=== PATIENT | female | born 1950 | race Caucasian/White ===

== ENCOUNTER 2017-11-24 01:50 | Inpatient (IN) | payer BC, MEDICARE ==
[2017-11-24] MEDS ORDERED: Magnesium Sulfate 2 GM/NS 0.9% 50 ML BAG ONE (02:01)
[2017-11-24 02:26] LABS: #Lymphocytes 0.4 thou/uL (1.20-3.40); #Monocytes 0.3 thou/uL (0.11-0.59); #Neutrophils 8.9 thou/uL (1.40-6.50); %Lymphocytes 4.4 % (21.0-51.0); %Monocytes 3.5 % (0.0-10.0); %Neutrophils 92.1 % (42.0-75.0); Hemoglobin 13.7 g/dL (12.0-16.0); Mean Corpuscular HGB CONC 32.4 g/dL (32.0-36.0); Mean Corpuscular Hemoglobin 29.7 pg (27.0-31.0); Mean Corpuscular Volume 91.6 fl (81.0-99.0); Mean Platelet Volume 6.2 fL (7.4-10.4); Platelet Count 221 thou/uL (130-400); RBC Distribution Width 11.6 % (11.5-14.5); White Blood Cell (WBC) Count 9.7 thou/uL (4.8-10.8)
[2017-11-24 02:45] LABS: ALT (SGPT) 19 U/L (8-55); AST (SGOT) 24 U/L (5-34); Albumin 4.1 g/dL (3.4-4.8); Alkaline Phosphatase 61 U/L (40-150); Anion Gap 14 mmol/L (10-20); BUN (Urea Nitrogen) 12 mg/dL (9.8-20.1); Bilirubin, Total 0.3 mg/dL (0.2-1.2); Calc. Creatinine Clearance 0 mL/min (70-130); Calcium 8.8 mg/dL (7.8-10.44); Carbon Dioxide 24 mmol/L (23-31); Chloride 101 mmol/L (98-107); Estimated GFR-MDRD Greater than 90; Globulin 2.3 g/dL (2.4-3.5); Glucose 134 mg/dL (80-115); Magnesium 1.7 mg/dL (1.6-2.6); Potassium 3.9 mmol/L (3.5-5.1); Protein, Total 6.4 g/dL (6.0-8.3); Sodium 135 mmol/L (136-145)
[2017-11-24 02:49] LABS: CKMB 5.7 ng/mL (0-6.6); Troponin I Less than 0.010 ng/mL (< 0.028)
[2017-11-24 03:25] LABS: pH, Arterial 7.35 (7.35-7.45)
[2017-11-24 03:28] LABS: Actual Bicarbonate (HCO3a) 24.5 mEq/L (22-26); Base Excess (BEa) -1.1 mEq/L (0 (+/-) 2.5)
[2017-11-24 03:29] LABS: Hematocrit-ABG 41.9 % (36.0-47.0); Hemoglobin (Hb) 12.9 g/dL (12.0-16.0)
[2017-11-24 03:30] LABS: Analyzer IN Cardio ER; Calcium, Ionized 1.1 mmol/L (1.12-1.30)
[2017-11-24 03:31] LABS: Puncture Site RRA
[2017-11-24] MEDS ORDERED: Sodium Chloride 0.9% 1,000 ML IV SCH (08:17)
[2017-11-24] MEDS ORDERED: Ondansetron HCl/PF 4 MG/2 ML Vial IVP PRN (08:17)
[2017-11-24] MEDS ORDERED: cefTRIAXone\\ROCEPHIN 1 GM in Sodium Chloride 0.9% 100 ML IVPB SCH (08:17)
[2017-11-24] MEDS ORDERED: Azithromycin 500 MG in Sodium Chloride 0.9% 250 ML 250 ML IVPB SCH (08:17)
[2017-11-24] MEDS ORDERED: Milk Of Magnesia 30 ML UDCUP PO PRN (08:17)
[2017-11-24] MEDS ORDERED: Lorazepam 2 MG/ML VIAL SLOW IVP PRN (08:17)
[2017-11-24] MEDS ORDERED: Acetaminophen 325 MG TAB PO PRN (08:17)
[2017-11-24] MEDS ORDERED: cloNIDine 0.1 MG TAB PO PRN (08:17)
[2017-11-24] MEDS ORDERED: Ondansetron ODT 4 MG TAB PO PRN (08:17)
[2017-11-24] MEDS ORDERED: Mag-Al 1200 mg/1200 mg/30 ML UDCUP PO PRN (08:17)
[2017-11-24] MEDS ORDERED: HYDROcodone/Acetaminophen 5/325 mg Tablet PO PRN (08:17)
--- NOTE | 2017-11-24 08:18 | RAD ---
FRONTAL VIEW CHEST: INDICATIONS: Respiratory distress with history of COPD. FINDINGS: There is hyperinflation of the lungs with interstitial prominence, more notable at the left lower sukhwinder g zone. The cardiac silhouette is at the upper limits of normal in size. There is vascular calcific ation. Partially imaged heart, right at the cervical spine, is present. IMPRESSION: 1. Chronic obstructive pulmonary disease. 2. Interstitial prominence notably at the left lower lung zone. This may relate to crowding and sukhwinder g markings from emphysema, although a superimposed pneumonitis is not excluded. Recommend clinical c orrelation and, as necessary, imaging followup may be obtained. POS: LORELEI
[2017-11-24] MEDS ORDERED: Lorazepam 2 MG/ML VIAL ONE (08:59)
--- NOTE | 2017-11-24 09:06 | HP ---
PRIMARY CARE PHYSICIAN: Dr. Kyra Zheng NEUROSURGERY SPINE PHYSICIAN: Alvaro Beckford DO CHIEF COMPLAINT: Shortness of breath. HISTORY OF PRESENT ILLNESS: Ms. Silva is currently on BiPAP and therefore the history of present illn ess is very brief as she is having quite a bit of difficulty completing full sentences due to severe shortness of breath. Ms. Silva has a history of COPD. She says that she is "short of breath all the time". She says that in the last week; however, it has gotten progressively worse. She says that keyon alva has had very minimal cough. She has had some chills, but in general, her breathing just got worse and worse over the last few days. She thought she could make it to see Dr. Beckford tomorrow, but she just could not hold out and as a result, she came to the ER for evaluation and she had called EMS. A chest x-ray was done, which did not show any evidence of any infiltrate; however, she has extreme i ncreased work of breathing and is being admitted for COPD exacerbation. The review of systems is ess entially unobtainable as the patient has severe dyspnea, but in general, she is complaining of some h eadaches, some chills, but no chest pain, no nausea, no vomiting, diarrhea, etc. PAST MEDICAL HISTORY: Significant for COPD and asthma. PAST SURGICAL HISTORY: She has had a hysterectomy and foot surgery. ALLERGIES: No known drug allergies. SOCIAL HISTORY: She is single. She is a former smoker. She says she quit years ago. She has 2 chi ldren. As far as code status, she would not want to be intubated. FAMILY HISTORY: She says there is all kinds of illnesses in her family. She was not specific. MEDICATIONS: These are taken from her bag that she had at the bedside include tramadol 50 mg p.r.n., Daliresp 50 mcg daily, Symbicort 160/4.5 daily, and Spiriva inhaled daily. PHYSICAL EXAMINATION: GENERAL: She is alert and oriented. She appears to be in some distress due to dyspnea. VITAL SIGNS: Blood pressure was ranging from 130-160/90, heart rate was 110, respiratory rate in the 30s. She is afebrile. HEENT: Pupils are equal, round, and reactive. Extraocular muscles are intact. Sclerae are anicteri c. Throat, no erythema, no exudates. NECK: No adenopathy, no bruits. LUNGS: She has decrease in air movement, decreased breath sounds throughout. There is no wheezing, no rales. CARDIOVASCULAR: She has normal S1, S2. Tachycardic. There is no murmur. ABDOMEN: Soft, it is nontender, nondistended. Positive for bowel sounds. No rebound or guarding. EXTREMITIES: There is trace edema. LABORATORY DATA: Sodium 135, potassium 3.9, chloride is 101, CO2 is 24, BUN of 12, creatinine 0.65, glucose is 134. White blood cell count 9.7, hemoglobin 13.7, hematocrit is 42.1, platelet count is 2 21. ABG: pH 7.35, pCO2 44, pO2 of 112. Troponin was less than 0.010. ASSESSMENT AND PLAN: This is a 67-year-old female that presents to the emergency room with severe ch ronic obstructive pulmonary disease exacerbation resulting in acute on chronic respiratory failure. She will be placed in the IMCU and she is currently on BiPAP. We will continue aggressive neb treatm ents as well as IV steroids, and empiric IV antibiotics. Pulmonology will be consulted. She will al so be placed on gastrointestinal and deep venous thrombosis prophylaxis.
[2017-11-24] MEDS ORDERED: Enoxaparin Sodium 40 MG/0.4 ML SYRINGE ONE (09:16)
[2017-11-24] MEDS ORDERED: Famotidine 20 MG TAB ONE (09:16)
[2017-11-24] MEDS ORDERED: HYDROcodone/Acetaminophen 5/325 mg Tablet ONE ×2 (09:16→14:30)
[2017-11-24] MEDS ORDERED: Water For Inject, Bacteriostat 30 ML ONE (09:17)
[2017-11-24] MEDS ORDERED: Sterile Water 10 ML ONE (09:17)
[2017-11-24 16:22] VITALS: BMI 19.5
[2017-11-24] MEDS: Enoxaparin Sodium 40 MG/0.4 ML SYRINGE SC SCH (16:33)
[2017-11-24] MEDS: Docusate 100 MG CAP PO SCH ×2 (16:33→23:55)
[2017-11-24] MEDS: cefTRIAXone\\ROCEPHIN 1 GM, Syringe 0.4 ML in Sterile Water 9.6 ML SLOW IVP SCH (16:33)
[2017-11-24] MEDS: Famotidine 20 MG TAB PO SCH ×2 (16:33→23:55)
[2017-11-24] MEDS: Azithromycin 500 MG in Sodium Chloride 0.9% 250 ML 250 ML IVPB SCH (16:34)
[2017-11-24] MEDS ORDERED: FLU VACC TS2017-18 (>65YR) 0.5 ML SYRINGE IM ONE (17:15)
[2017-11-24] MEDS ORDERED: Lactated Ringer's 1,000 ML IV SCH (17:45)
[2017-11-24] MEDS ORDERED: Oseltamivir 75 MG CAP PO SCH (18:00)
[2017-11-24] MEDS: Dextrose 5 %-0.45 % NaCl 1,000 ML IV SCH (21:19)
--- NOTE | 2017-11-25 00:24 | CON ---
DATE OF CONSULTATION: 11/24/2017 SERVICE: Pulmonary Medicine. REASON FOR CONSULTATION: COPD exacerbation. HISTORY OF PRESENT ILLNESS: The patient is a 67-year-old white female with past medical history sign ificant for COPD. She does have dyspnea that limits her activity on a day by day basis. That being said, when she slows down, she is able to do things just fine. She sees in the outpatient setting. She has an appointment to see him tomorrow, but unfortunately could not make it there. She presented to the Emergency Department with acute dyspnea. She was tucked into the IMCU after steroi ds, nebulized medications, and antibiotics. She does not feel much better at this point. She is hop ing that over the next 24-48 hours, things will start to improve. She has cough, congestion, and spu brad production which is more than usual. She has not been able to get any significant consolidated r est for the better part of 2 nights. She is tired, but she has visible dyspnea that is preventing he r from getting that rest. She does feel a little bit better with the BiPAP, but today, she has not b een able to tolerate a single break. She indicates having multiple sick contacts. PAST MEDICAL HISTORY: 1. COPD. 2. Asthma. PAST SURGICAL HISTORY: 1. Hysterectomy. 2. Foot surgery. ALLERGIES: No known drug allergies. MEDICATIONS: List of her inpatient medications were reviewed. A couple of small updates were made. SOCIAL HISTORY: She is a former smoker. She has two children. She is a DNI/DNR. I have actually t ried to convince her that she should have a tube if it means that it could come back out in a period of 24-48 hours so that she could recover from this thing and she had indicated to me that she would n ot want that. We did have a brief conversation about the fact that if things get worse, and she requ ired a tube in order to continue to exist, her option would have the tube (even possibly for temporar y reason) versus passing away, the patient has indicated to me that she would prefer to pass away and then she would be done. Under no circumstances are we to put a tube down. FAMILY HISTORY: Noncontributory. REVIEW OF SYSTEMS: General, head, ears, eyes, nose, throat, cardiovascular, respiratory, GI, , mus culoskeletal, neurologic and skin is negative except as mentioned in the HPI. PHYSICAL EXAMINATION: VITAL SIGNS: Afebrile currently T-max 99.7, pulse 115, blood pressure 112/77, respirations 32, satur ation 95% on room air. GENERAL: The patient is awake and alert. She is in moderate respiratory distress on BiPAP. She is sitting bolt upright. HEENT: Normocephalic, atraumatic. Sclerae are white, conjunctivae pink. Oral and nasal mucosa is m oist without lesions. LUNGS: There is decreased air entry with prolonged expiratory phase, wheezing or rhonchi. No crackl es are appreciated. HEART: Normal rate, regular. ABDOMEN: Soft, nontender, nondistended. Bowel sounds are positive. MUSCULOSKELETAL: No cyanosis or clubbing. There is no pitting in the bilateral lower extremities. NEUROLOGIC: Grossly nonfocal. SKIN: There is skin tenting present throughout. LABORATORY DATA: WBC 9.7, hemoglobin 13.7, platelets 221,000. Neutrophil count is 92%. PH 7.35, pC O2 of 44, pO2 of 112. This is on BiPAP at that time with a PEEP of 5, and FiO2 of 35%. Basic metabo lic profile, liver function studies are unremarkable. Cardiac enzymes x1 is negative. Lactate is 1. 1. Influenza A is negative. B is also negative. IMAGING: Chest x-ray demonstrates an interstitial prominence of the left lower lobe. Emphysema. ASSESSMENT: 1. Acute on chronic hypoxic respiratory failure. 2. Chronic obstructive pulmonary disease with acute exacerbation PLAN: I stood at bedside for over 30 minutes titrating the BiPAP up in order to provide her with add itional comfort. Hopefully, over the next 24-48 hours, she will defervesce from this what I presume is an acute infectious viral illness. I will send a respiratory virus panel. I will change her to D NR/DNI so that under no circumstances I would intubate her. I again attempted to talk her out of thi s suggesting that if she got intubated, it may just be a temporary thing. That being said, she is ab solutely adamant that she if it came to it. I will give her some IV fluids overnight and bolus her with a 500 mL bolus of fluid because she is extremely dry. Pulmonary Critical Care will c ontinue to follow. The patient was extraordinarily sick and I am concerned that she could pass away from respiratory issues.
[2017-11-25 04:33] LABS: #Lymphocytes 0.5 thou/uL (1.20-3.40); #Monocytes 0.4 thou/uL (0.11-0.59); #Neutrophils 11.9 thou/uL (1.40-6.50); %Basophils 0.2 % (0.0-1.0); %Eosinophils 0.1 % (0.0-10.0); %Monocytes 2.9 % (0.0-10.0); %Neutrophils 92.9 % (42.0-75.0); Hemoglobin 13.1 g/dL (12.0-16.0); Mean Corpuscular HGB CONC 32.8 g/dL (32.0-36.0); Mean Corpuscular Hemoglobin 30.2 pg (27.0-31.0); Mean Corpuscular Volume 91.9 fl (81.0-99.0); Mean Platelet Volume 7.2 fL (7.4-10.4); Platelet Count 193 thou/uL (130-400); RBC Distribution Width 11.7 % (11.5-14.5); Red Blood Cell (RBC) Count 4.33 mill/uL (4.20-5.40); White Blood Cell (WBC) Count 12.9 thou/uL (4.8-10.8)
[2017-11-25 04:51] LABS: Anion Gap 13 mmol/L (10-20); BUN (Urea Nitrogen) 16 mg/dL (9.8-20.1); Calc. Creatinine Clearance 71 mL/min (70-130); Calcium 9.2 mg/dL (7.8-10.44); Carbon Dioxide 24 mmol/L (23-31); Chloride 101 mmol/L (98-107); Estimated GFR-MDRD Greater than 90; Glucose 141 mg/dL (80-115); Potassium 4.4 mmol/L (3.5-5.1); Sodium 134 mmol/L (136-145)
--- NOTE | 2017-11-25 07:46 | PDOC.PN ---
- Subjective Encounter Start Date: 11/25/17 Encounter Start Time: 07:44 Ms. Silva was seen today in follow-up of acute respiratory failure. She still appears very fatigued. She says she is doing OK. She can only says about 1 sentence before needing to rest. - Objective Resuscitation Status: Resuscitation Status DNI:No Intubation MAR Reviewed: Yes Vital Signs & Weight: Vital Signs (12 hours) Temp Pulse Resp BP Pulse Ox 11/25/17 03:55 82 11/25/17 03:54 95 11/25/17 03:36 98.3 F 81 24 H 109/66 95 11/24/17 23:42 99.3 F 93 24 H 116/68 95 11/24/17 22:18 97 28 H 95 11/24/17 20:00 99.3 F 93 24 H 94 L 11/24/17 19:49 99.2 F 96 26 H 112/77 94 L Weight Weight 113 lb 9.6 oz I&O: 11/24/17 11/25/17 11/26/17 06:59 06:59 06:59 Intake Total 1612 Output Total 550 Balance 1062 Result Diagrams: 11/25/17 03:46 11/25/17 03:46 Phys Exam - Physical Examination HEENT: PERRLA + expiratory wheeze, no rhonchi or rales. Cardiovascular: RRR, no significant murmur, no rub Gastrointestinal: soft, non-tender, positive bowel sounds Musculoskeletal: no edema Dx/Plan (1) Acute on chronic respiratory failure with hypoxemia Code(s): J96.21 - ACUTE AND CHRONIC RESPIRATORY FAILURE WITH HYPOXIA Status: Acute (2) COPD exacerbation Code(s): J44.1 - CHRONIC OBSTRUCTIVE PULMONARY DISEASE W (ACUTE) EXACERBATION Status: Acute (3) Pneumonia, community acquired Code(s): J18.9 - PNEUMONIA, UNSPECIFIED ORGANISM Status: Acute - Plan * Acute on chronic respiratory failure from Pneumonia- Continue IV Antibiotics * Continue BiPAP, Duonebs, and steroids * Hopefully she won't become overwhelmingly fatigued .
[2017-11-25] MEDS: Enoxaparin Sodium 40 MG/0.4 ML SYRINGE SC SCH (08:49)
[2017-11-25] MEDS: Famotidine 20 MG TAB PO SCH ×2 (08:49→20:52)
[2017-11-25] MEDS: Docusate 100 MG CAP PO SCH ×2 (08:49→20:52)
[2017-11-25] MEDS: Dextrose 5 %-0.45 % NaCl 1,000 ML IV SCH ×2 (08:51→20:52)
[2017-11-25] MEDS: cefTRIAXone\\ROCEPHIN 1 GM, Syringe 0.4 ML in Sterile Water 9.6 ML SLOW IVP SCH (08:53)
[2017-11-25] MEDS: Azithromycin 500 MG in Sodium Chloride 0.9% 250 ML 250 ML IVPB SCH (16:52)
[2017-11-25] MEDS: Oseltamivir 75 MG CAP PO SCH (20:52)
[2017-11-26] MEDS: Docusate 100 MG CAP PO SCH ×2 (09:15→20:55)
[2017-11-26] MEDS: Famotidine 20 MG TAB PO SCH ×2 (09:15→20:55)
[2017-11-26] MEDS: Enoxaparin Sodium 40 MG/0.4 ML SYRINGE SC SCH (09:15)
--- NOTE | 2017-11-26 09:31 | PDOC.PN ---
- Subjective Encounter Start Date: 11/26/17 Encounter Start Time: 09:30 Ms. Silva was seen today in follow-up of severe respiratory failure from COPD exacerbation. She has been able to take a few breaks off BiPAP off and on. She does not notice much cough. - Objective Resuscitation Status: Resuscitation Status DNI:No Intubation MAR Reviewed: Yes Vital Signs & Weight: Vital Signs (12 hours) Temp Pulse Resp BP Pulse Ox 11/26/17 08:09 99 11/26/17 08:06 91 37 H 93 L 11/26/17 08:00 98 F 99 24 H 94 L 11/26/17 07:00 97.5 F L 86 18 142/73 H 95 11/26/17 04:00 98.1 F 77 28 H 138/76 92 L 11/26/17 03:36 76 11/26/17 01:54 76 35 H 92 L 11/26/17 00:00 98.0 F 84 28 H 130/70 92 L 11/25/17 22:10 78 11/25/17 22:07 78 29 H 93 L Weight Weight 111 lb 8 oz I&O: 11/25/17 11/26/17 11/27/17 06:59 06:59 06:59 Intake Total 1612 1740 Output Total 550 1350 Balance 1062 390 Result Diagrams: 11/25/17 03:46 11/25/17 03:46 Phys Exam - Physical Examination HEENT: PERRLA Respiratory: wheezing present + occasional wheeze, and rhonchi Cardiovascular: RRR, no significant murmur Gastrointestinal: soft, non-tender, positive bowel sounds Musculoskeletal: no edema Dx/Plan (1) Acute on chronic respiratory failure with hypoxemia Code(s): J96.21 - ACUTE AND CHRONIC RESPIRATORY FAILURE WITH HYPOXIA Status: Acute (2) COPD exacerbation Code(s): J44.1 - CHRONIC OBSTRUCTIVE PULMONARY DISEASE W (ACUTE) EXACERBATION Status: Acute (3) Pneumonia, community acquired Code(s): J18.9 - PNEUMONIA, UNSPECIFIED ORGANISM Status: Acute - Plan * Acute on chronic respiratory failure- continue Neb treatments, and Steroids, empiric antibiotics * Agree with the addition of Tamiflu.
[2017-11-26] MEDS: cefTRIAXone\\ROCEPHIN 1 GM, Syringe 0.4 ML in Sterile Water 9.6 ML SLOW IVP SCH (09:59)
[2017-11-26] MEDS: Dextrose 5 %-0.45 % NaCl 1,000 ML IV SCH ×2 (09:59→18:39)
[2017-11-26] MEDS: Azithromycin 500 MG in Sodium Chloride 0.9% 250 ML 250 ML IVPB SCH (14:09)
--- NOTE | 2017-11-26 17:00 | PRG ---
DATE OF SERVICE: 11/26/2017 SERVICE: Pulmonary Medicine. INTERVAL HISTORY: The patient is doing great from a respiratory standpoint. She has had increasing longer breaks. She still requires BiPAP during the daytime a couple times per day. That being said, since she is tolerating longer breaks, I am hopeful that she will make it through this event without needing additional support. PHYSICAL EXAMINATION: VITAL SIGNS: Afebrile, pulse 100, blood pressure 133/87, respirations 34, saturation 93% on room air . GENERAL: Patient is awake, alert, no apparent distress. LUNGS: Improved air entry. There is a prolonged expiratory phase and wheezing. No crackles are candis reciated. HEART: Normal rate, regular. ABDOMEN: Soft, nontender, nondistended. Bowel sounds are positive. MUSCULOSKELETAL: No cyanosis or clubbing. No pitting in the bilateral lower extremities. NEUROLOGIC: Grossly nonfocal. ASSESSMENT: 1. Acute on chronic hypoxic respiratory failure. 2. Chronic obstructive pulmonary disease with acute exacerbation. PLAN: She will need to remain in the ICU until she can tolerate a full night without BiPAP therapy. In the meantime, we will continue antibiotics, nebulizer medications and steroids. I will repeat rickey rae tomorrow. Respiratory virus profile will be sent, actually we were looking for secondary causes of her infectious process.
--- NOTE | 2017-11-26 17:05 | PRG ---
DATE OF SERVICE: 11/25/2017 SERVICE: Pulmonary Medicine. INTERVAL HISTORY: The patient is doing great from a respiratory standpoint. She has been able to to lerate 3-hour break off BiPAP today. She got tired and got put back on it. She is getting through h er breaks 3 times daily. I still want her to wear this thing at night. Otherwise, it seems that she is making ever so slight improvements. I hope to get her through this thing without having to intub ate her because we cannot do that based on what she is suggesting to us despite the fact that I tried to talk her out with yesterday. PHYSICAL EXAMINATION: VITAL SIGNS: Afebrile, pulse 83, blood pressure 121/71, respirations 30, saturation 97% on 23% FiO2 and a PEEP of 5. HEENT: Normocephalic, atraumatic. Sclerae are white, conjunctivae pink. Oral mucosa is moist witho ut lesions. LUNGS: Slightly improved air entry. Polyphonic wheezing is present. There is a prolonged expirator y phase. No crackles. No rhonchi. HEART: Normal rate, regular. ABDOMEN: Soft, nontender, nondistended. Bowel sounds are positive. MUSCULOSKELETAL: No cyanosis or clubbing. No pitting in the bilateral lower extremities. NEUROLOGIC: Grossly nonfocal. LABORATORY DATA: WBC 12.9, hemoglobin 13.1, platelets 193,000. Basic metabolic profile is completel y unremarkable. Influenza A and B are negative. ASSESSMENT: 1. Acute on chronic hypoxic respiratory failure. 2. Chronic obstructive pulmonary disease with acute exacerbation. PLAN: The patient will remain on her BiPAP continuously with 3 breaks daily. We will increase those breaks as she tolerates them. Hopefully, she will move in the right direction. Otherwise, steroids , nebulized medications, and antibiotics will be continued.
[2017-11-26] MEDS: Oseltamivir 75 MG CAP PO SCH (20:56)
[2017-11-27] MEDS: Dextrose 5 %-0.45 % NaCl 1,000 ML IV SCH ×2 (02:35→21:56)
[2017-11-27] MEDS: Docusate 100 MG CAP PO SCH ×3 (08:18→21:55)
[2017-11-27] MEDS: cefTRIAXone\\ROCEPHIN 1 GM, Syringe 0.4 ML in Sterile Water 9.6 ML SLOW IVP SCH (08:18)
[2017-11-27] MEDS: Famotidine 20 MG TAB PO SCH ×2 (08:18→21:55)
[2017-11-27] MEDS: Enoxaparin Sodium 40 MG/0.4 ML SYRINGE SC SCH (08:18)
--- NOTE | 2017-11-27 10:46 | PDOC.PN ---
- Subjective Encounter Start Date: 11/27/17 Encounter Start Time: 10:44 Ms. Silva was see today in follow-up of respiratory failure. She says she is doing much better. She made it through the night mostly off BiPAP. - Objective Resuscitation Status: Resuscitation Status DNI:No Intubation MAR Reviewed: Yes Vital Signs & Weight: Vital Signs (12 hours) Temp Pulse Resp BP Pulse Ox 11/27/17 08:10 95 11/27/17 08:02 97 22 H 95 11/27/17 08:00 97.9 F 97 22 H 96 11/27/17 07:50 97.7 F 88 21 H 122/63 96 11/27/17 04:00 98.0 F 74 22 H 118/69 95 11/27/17 02:29 78 20 97 11/27/17 00:15 97.8 F 112 H 20 141/80 H 93 L Weight Weight 114 lb 6 oz I&O: 11/26/17 11/27/17 11/28/17 06:59 06:59 06:59 Intake Total 1740 2280 Output Total 1350 1250 Balance 390 1030 Result Diagrams: 11/25/17 03:46 11/25/17 03:46 Phys Exam - Physical Examination HEENT: PERRLA Respiratory: wheezing present + Mild expiratory wheeze, better air movement Cardiovascular: RRR, no significant murmur, no rub Gastrointestinal: soft, non-tender, positive bowel sounds Musculoskeletal: no edema Dx/Plan (1) Acute on chronic respiratory failure with hypoxemia Code(s): J96.21 - ACUTE AND CHRONIC RESPIRATORY FAILURE WITH HYPOXIA Status: Acute (2) COPD exacerbation Code(s): J44.1 - CHRONIC OBSTRUCTIVE PULMONARY DISEASE W (ACUTE) EXACERBATION Status: Acute (3) Pneumonia, community acquired Code(s): J18.9 - PNEUMONIA, UNSPECIFIED ORGANISM Status: Acute - Plan * Acute on chronic respiratory failure with hypoxemia- she is improving * Steroids have been reduced * She can be transferred to the Medical floor * Hopefully home soon..
--- NOTE | 2017-11-27 13:11 | PRG ---
DATE OF SERVICE: 11/27/2017 SERVICE: Pulmonary Medicine INTERVAL HISTORY: The patient is doing really well from a respiratory standpoint. She was off of Bi PAP all night. She has no specific complaints of nausea, vomiting, fever or chills. She feels that she is 80% back to baseline. I am very encouraged by her rapid recovery. PHYSICAL EXAMINATION: VITAL SIGNS: Afebrile, pulse 84, blood pressure 121/65, respirations 18, saturation 94% on 2 liters nasal cannula. GENERAL: Patient is awake, alert, no apparent distress. LUNGS: Decent air entry. There is prolonged expiratory phase and polyphonic wheezing. She is movin g much better air. No crackles or rhonchi appreciated today. HEART: Normal rate, regular. ABDOMEN: Soft, nontender, nondistended. Bowel sounds are positive. MUSCULOSKELETAL: No cyanosis or clubbing. There is no pitting in the bilateral lower extremities. NEUROLOGIC: Grossly nonfocal. ASSESSMENT: 1. Acute on chronic hypoxic respiratory failure. 2. Chronic obstructive pulmonary disease with acute exacerbation. PLAN: The patient can transition out of the IMCU to the Telemetry Unit. Pulmonary Critical Care kevin l continue to follow up for the time being, but if in 24 hours, she demonstrates decent strength, and is returning to her usual state of health, she can be transitioned home. I believe her primary pulm onologist is trying to set her up with oxygen in the outpatient setting. If the home evaluation prov es that she does need oxygen for chronic respiratory failure, this can be arranged at least temporari ly until she has an opportunity to get back in to see her primary technical sales director.
[2017-11-27] MEDS: Azithromycin 500 MG in Sodium Chloride 0.9% 250 ML 250 ML IVPB SCH (13:24)
[2017-11-27] MEDS: Oseltamivir 75 MG CAP PO SCH (21:56)
[2017-11-28] MEDS ORDERED: Sodium Chloride 0.9% 10 ML ONE (08:55)
[2017-11-28] MEDS: cefTRIAXone\\ROCEPHIN 1 GM, Syringe 0.4 ML in Sterile Water 9.6 ML SLOW IVP SCH (08:56)
[2017-11-28] MEDS: Docusate 100 MG CAP PO SCH ×2 (08:58→21:41)
[2017-11-28] MEDS: Famotidine 20 MG TAB PO SCH ×2 (08:58→21:42)
[2017-11-28] MEDS: Enoxaparin Sodium 40 MG/0.4 ML SYRINGE SC SCH (09:00)
[2017-11-28] MEDS: Azithromycin 500 MG in Sodium Chloride 0.9% 250 ML 250 ML IVPB SCH (15:49)
--- NOTE | 2017-11-28 18:02 | PDOC.PN ---
- Subjective Encounter Start Date: 11/28/17 Encounter Start Time: 18:00 Subjective: seen and examined feeling better - Objective Resuscitation Status: Resuscitation Status DNI:No Intubation Vital Signs & Weight: Vital Signs (12 hours) Temp Pulse Resp BP Pulse Ox 11/28/17 17:59 94 18 90 L 11/28/17 16:20 97.9 F 86 20 139/69 11/28/17 14:55 94 12 11/28/17 12:45 98.4 F 99 20 133/68 11/28/17 11:28 89 16 11/28/17 08:49 98.4 F 99 22 H 153/75 H 95 11/28/17 07:58 98.7 F 98 16 11/28/17 07:40 96 11/28/17 07:37 98 16 Weight Weight 114 lb 6 oz I&O: 11/27/17 11/28/17 11/29/17 06:59 06:59 06:59 Intake Total 2280 480 Output Total 1250 1 Balance 1030 479 Result Diagrams: 11/25/17 03:46 11/25/17 03:46 Phys Exam - Physical Examination Constitutional: NAD HEENT: PERRLA, moist MMs, sclera anicteric, TM's clear, oral pharynx no lesions Neck: no nodes, no JVD, supple, full ROM Respiratory: no wheezing, no rales, no rhonchi, clear to auscultation bilateral Cardiovascular: RRR, no significant murmur, no rub Gastrointestinal: soft, non-tender, no distention, positive bowel sounds Dx/Plan (1) Acute on chronic respiratory failure with hypoxemia Code(s): J96.21 - ACUTE AND CHRONIC RESPIRATORY FAILURE WITH HYPOXIA Status: Acute (2) COPD exacerbation Code(s): J44.1 - CHRONIC OBSTRUCTIVE PULMONARY DISEASE W (ACUTE) EXACERBATION Status: Acute (3) Pneumonia, community acquired Code(s): J18.9 - PNEUMONIA, UNSPECIFIED ORGANISM Status: Acute - Plan plan discussed w/ family, continue antibiotics, PT/OT, director of social media marketing, respiratory therapy Appreciate pulmonary input -: Dispo planning -: Transition to oral antibiotics and steroids -: D/c IVF--wean off oxygen if possible -: If doing well home in 24hrs * .
--- NOTE | 2017-11-28 20:09 | PRG ---
DATE OF SERVICE: 11/28/2017 SERVICE: Pulmonary Medicine. INTERVAL HISTORY: The patient is feeling fantastic from a respiratory standpoint. She is breathing comfortably. She has no specific complaints of fevers, chills, nausea, or vomiting. She is able to walk around the entire unit today without much difficulty. Otherwise, there has been no interval warren nge to her condition except for increasing lower extremity swelling. IV fluids have been maintained. PHYSICAL EXAMINATION: VITAL SIGNS: Afebrile, pulse 86, blood pressure 139/69, respirations 18, saturation 90% on 2 liters nasal cannula. GENERAL: Patient is awake, alert, in no apparent distress. LUNGS: Decent air entry. There is a prolonged expiratory phase. Wheezing is present, but much impr jeremy. HEART: Normal rate, regular. ABDOMEN: Soft, nontender, nondistended. Bowel sounds are positive. MUSCULOSKELETAL: No cyanosis or clubbing. There is 2+ pitting in the bilateral lower extremities. NEUROLOGIC: Grossly nonfocal. ASSESSMENT: 1. Acute on chronic hypoxic respiratory failure. 2. Chronic obstructive pulmonary disease with acute exacerbation. 3. Volume overload, mild. PLAN: I will stop the patient's IV fluids. I will give a dose of Lasix now and tomorrow morning. S he remains stable from a respiratory standpoint, in the morning, she can be considered for transition out of the hospital. If she desaturates on room air, we may need to set her up with temporary oxyge n, which will likely become a prominent feature. Her primary civil engineering technician has been trying to set he r up with this in the outpatient setting for some time.
[2017-11-28] MEDS: Furosemide 20 MG/2 ML VIAL SLOW IVP SCH ×2 (21:29→21:41)
[2017-11-28] MEDS: Cefdinir 300 MG CAP PO SCH (21:41)
[2017-11-29] MEDS: Dextrose 5 %-0.45 % NaCl 1,000 ML IV SCH (03:27)
[2017-11-29] MEDS ORDERED: Furosemide 20 MG/2 ML VIAL SLOW IVP SCH (06:00)
[2017-11-29] MEDS ORDERED: predniSONE 20 MG TAB PO SCH (08:00)
[2017-11-29] MEDS: Famotidine 20 MG TAB PO SCH (08:55)
[2017-11-29] MEDS: Docusate 100 MG CAP PO SCH (08:55)
[2017-11-29] MEDS: Cefdinir 300 MG CAP PO SCH (08:56)
[2017-11-29] MEDS: Enoxaparin Sodium 40 MG/0.4 ML SYRINGE SC SCH (08:57)
[2017-11-29 12:50] VITALS: BP 150/85; TEMP 98.5
--- NOTE | 2017-11-29 17:26 | PRG ---
DATE OF SERVICE: 11/29/2017 SERVICE: Pulmonary Medicine. INTERVAL HISTORY: The patient is doing fantastic from a breathing standpoint. Her breathing is much improved. She denies any current fevers, chills, nausea, vomiting or chest discomfort. Otherwise, there has been no interval change to her condition. PHYSICAL EXAMINATION: VITAL SIGNS: Afebrile, pulse 80, blood pressure 150/85, respirations 20, saturation 94% on room air. GENERAL: The patient is awake and alert, in no apparent distress. LUNGS: Decent air entry. There is much improved expiratory phase. There is minimal wheezing at thi s point. I do hear a little bit of crackling. HEART: Normal rate, regular. ABDOMEN: Soft, nontender, nondistended. Bowel sounds are positive. MUSCULOSKELETAL: No cyanosis or clubbing. She has got trace 1+ pitting in the bilateral lower extre mities, which is improved. GENITOURINARY: No Leon. NEUROLOGIC: Grossly nonfocal. ASSESSMENT: 1. Acute on chronic hypoxic respiratory failure. 2. Chronic obstructive pulmonary disease with acute exacerbation. 3. Volume overload, mild. PLAN: I will continue the a.m. dose of Lasix for the time being as the patient remains a touch volum e overloaded. From a purely respiratory perspective, she is stable for transition out of [facility], but they are working to figure out whether or not she will go home on or off of oxygen. She daniel hannon has an appointment with Dr. Asim Umana in 5 days, but she is afraid that if she goes home and g ets in trouble over the weekend that she will have no help. As such, she would prefer to go home on oxygen. I will leave that to the primary service to decide about. Dr. Ross will follow through the weekend.
== END 2017-11-29 18:14 | disposition home or self-care (01) | DRG 189 ==
LOC: ERS 01:50 → ERHOLD 06:09 → IMCU/EMU 16:26 → 3SE 11-27 16:27
PROVIDERS: ADMIT Internal Medicine; ATTEND Internal Medicine
PROC: 5A09457 Assistance with Respiratory Ventilation, 24-96 Consecutive Hours, Continuous Positive Airway Pressure (ICD-10-PCS; principal; 2017-11-24)
DX: J96.21 Acute and chronic respiratory failure with hypoxia (principal); J18.9 Pneumonia, unspecified organism; J44.0 Chronic obstructive pulmonary disease with (acute) lower respiratory infection; E87.70 Fluid overload, unspecified; J44.1 Chronic obstructive pulmonary disease with (acute) exacerbation; Z66 Do not resuscitate; Z87.891 Personal history of nicotine dependence
CPT/HCPCS: 36415; 71045; 80048; 80053; 82553; 82805; 83605; 83735; 84484; 85025; 87633; 87798; 93005; 94640; 94660; 96361; 96365; 96366; 96367; 96372; 96375; A4216; J0456; J0696; J1650; J1940; J2060; J2920; J3475; J7042; J7050; J7506; J7620

== ENCOUNTER 2019-04-24 13:37 | Observation (INO) | payer BC, MEDICARE ==
[2019-04-24 14:11] LABS: #Basophils 0.1 thou/uL (0.0-0.2); #Eosinphils 0.2 thou/uL (0.0-0.7); #Lymphocytes 2.5 thou/uL (1.20-3.40); #Monocytes 0.6 thou/uL (0.11-0.59); #Neutrophils 4.3 thou/uL (1.40-6.50); %Basophils 0.8 % (0.0-1.0); %Lymphocytes 32.3 % (21.0-51.0); %Monocytes 8.2 % (0.0-10.0); %Neutrophils 55.7 % (42.0-75.0); Hemoglobin 14.4 g/dL (12.0-16.0); Mean Corpuscular HGB CONC 33.9 g/dL (32.0-36.0); Mean Corpuscular Hemoglobin 30.2 pg (27.0-31.0); Mean Corpuscular Volume 89.1 fL (78.0-98.0); Mean Platelet Volume 6.6 fL (7.4-10.4); Platelet Count 285 thou/uL (130-400); RBC Distribution Width 11.7 % (11.5-14.5); Red Blood Cell (RBC) Count 4.76 mill/uL (4.20-5.40); White Blood Cell (WBC) Count 7.7 thou/uL (4.8-10.8)
--- NOTE | 2019-04-24 14:18 | RAD ---
XR Chest 1 View Portable History: [Chest pain. Shortness of breath.] Comparison: Radiograph November 2017 Findings: Lungs are mildly hyperinflated. No pneumothorax. No effusion. Mild scarring both lung bases . Cardiac silhouette and mediastinal contours are similar. No acute osseous abnormality. Impression: Obstructive pulmonary disease. No acute intrathoracic abnormality.
[2019-04-24 14:19] LABS: Analyzer IN Cardio ER; Base Excess (BEa) -0.4 mEq/L (-2.0 to +3.0); CO2 Tension 43.7 mmHg (35.0-45.0); Calcium, Ionized 1.21 mmol/L (1.12-1.30); Carboxyhemoglobin (COHb) 0.6 gm% (0.0-3.0); O2 Tension (PaO2) 92.5 mmHg (> 80.0); Potassium - ABG Lab 3.49 mmol/L (3.70-5.30); pH, Arterial 7.38 (7.35-7.45)
[2019-04-24] MEDS ORDERED: diphenhydrAMINE 50 MG/ML VIAL ONE (14:20)
[2019-04-24 14:21] LABS: ALV-art Gradient 66.775 (0-20); Puncture Site LRA
[2019-04-24 14:40] LABS: ALT (SGPT) 17 U/L (8-55); AST (SGOT) 23 U/L (5-34); Albumin 4.4 g/dL (3.4-4.8); Alkaline Phosphatase 81 U/L (40-150); Anion Gap 13 mmol/L (10-20); BUN (Urea Nitrogen) 13 mg/dL (9.8-20.1); Bilirubin, Total 0.3 mg/dL (0.2-1.2); Calc. Creatinine Clearance 0 mL/min (70-130); Calcium 9.3 mg/dL (7.8-10.44); Carbon Dioxide 28 mmol/L (23-31); Chloride 102 mmol/L (98-107); Estimated GFR-MDRD 67; Globulin 2.1 g/dL (2.4-3.5); Glucose 131 mg/dL (80-115); Protein, Total 6.5 g/dL (6.0-8.3); Sodium 139 mmol/L (136-145)
[2019-04-24 16:55] VITALS: BMI 20.9
[2019-04-24] MEDS ORDERED: Acetaminophen 325 MG TAB PO PRN (17:18)
[2019-04-24] MEDS ORDERED: Ondansetron ODT 4 MG TAB SL PRN (17:18)
[2019-04-24] MEDS ORDERED: Ondansetron PF 4 MG/2 ML Vial IVP PRN (17:18)
[2019-04-24] MEDS ORDERED: HYDROcodone/Acetaminophen 5/325 mg Tablet PO PRN (19:46)
[2019-04-24] MEDS ORDERED: Senokot S 8.6-50 MG TAB PO PRN (19:46)
[2019-04-24] MEDS: Famotidine 20 MG TAB PO SCH (21:28)
[2019-04-24] MEDS: methylPREDNISolone Sod Succ 40 MG VIAL IVP SCH (23:15)
[2019-04-24] MEDS: Ipratropium Bromide 2.5 ml Neb NEB SCH (23:19)
--- NOTE | 2019-04-25 01:47 | HP ---
PRIMARY CARE PHYSICIAN: Estrellita Zheng. CHIEF COMPLAINT: Shortness of breath, respiratory distress. CODE STATUS: DNR. HISTORY OF PRESENT ILLNESS: The patient is a 68-year-old female with a past medical history of COPD and asthma. She is not on home oxygen. Reports that she was at work this afternoon and after lunch walking in from her car, she developed some shortness of breath, became diaphoretic with some intermittent chest pain that she reports as substernal. She denies any heart palpitations, lightheadedness, nausea, or vomiting. She reports her coworkers realized that she was in some distress and immediately called EMS. EMS showed up and gave her CPAP, got an IV with Solu-Medrol x2 doses and performed an EKG, and the patient was subsequently brought to [facility]. Per EMS, the patient had difficulty breathing, was 81% on room air. EMS went up giving the patient 3 DuoNeb, Solu-Medrol and magnesium. After receiving these interventions, the patient reports that her symptoms had resolved. In the ER, the patient was given 1 L of normal saline and was given 25 mg of Benadryl IV push because she went up developing a red pruritic rash to all 4 of her extremities that extended into her trunk. At the time of exam, the patient's rash had receded down just to her bilateral lower extremities and the patient denies any shortness of breath, chest pain. Reports that she was even ready to go home. Chest x-ray in the ER showed lungs mildly hyperinflated. No acute intrathoracic abnormality. PAST MEDICAL HISTORY: The patient has a past medical history of COPD, asthma. The patient also has a past medical history of fibromyalgia. PAST SURGICAL HISTORY: The patient had hysterectomy. She has had neck surgery and she has had tumor removal from her breast. PSYCHIATRIC HISTORY: The patient denies any psychiatric history. SOCIAL HISTORY: The patient reports she is a social drinker, describing as rarely. The patient denies any illicit drug use. The patient is a former smoker for 50 years, 2 packs per day. She quit more than 10 years ago. She lives in [place] with her spouse. ALLERGIES: THE PATIENT DENIES ANY KNOWN DRUG ALLERGIES. HOME MEDICATIONS: 1. Spiriva 18 mcg one inhalation daily. 2. Daliresp 500 mcg. 3. Symbicort 160 mcg-4.5 mcg actuation. 4. ProAir HFA 90 mcg. 5. Acetylcysteine 600 mg. REVIEW OF SYSTEMS: The patient reports shortness of breath, diaphoresis, and chest pain. All other systems reviewed and negative unless otherwise stated in the HPI. PHYSICAL EXAMINATION: VITAL SIGNS: The patient's blood pressure 118/58, pulse 89, respirations 24, temperature 98.9 oral. The patient is 96% on 1 L of O2 nasal cannula. HEAD: Atraumatic, normocephalic. EYES: Pupils are equal, round, and reactive light. Extraocular muscles intact. Sclerae are nonicteric. ENT: Tympanic membranes normal. Nares patent. Oropharynx is clear. Uvula is midline. Moist mucous membranes. NECK: Neck is supple. No lymphadenopathy. Trachea is midline. RESPIRATIONS: The patient has diminished breath sounds to bilateral lower lobes and has some expiratory wheezes. CARDIOVASCULAR: Regular rate and rhythm. No murmurs or gallops. GI: Abdomen is soft, nontender. Active bowel sounds. No pulsatile masses. No peritoneal signs. BILATERAL UPPER EXTREMITIES: Normal range of motion. No swelling. No edema. No clubbing or cyanosis. LOWER EXTREMITIES: No swelling or erythema. Palpable radial pulses. No clubbing or cyanosis. NEURO: The patient is alert and oriented to person, place, and time. SKIN: Skin is warm, dry, and intact. PERTINENT LABORATORY DATA: Sodium is 139, potassium 4.0, carbon dioxide 28, creatinine 0.84, BUN 13, glucose 131, calcium 9.3. AST 23, ALT 17. Troponins negative. BNP 24.2. WBC 7.7, hemoglobin 14.4, hematocrit 42.4, platelets 285. ABG, pH 7.38, CO2 43.7, PO2 92.5, bicarb 25. The patient was on BiPAP 14/6, 30% . EKG, sinus tach, 103 beats per minute with some PACs with aberrant conduction. ASSESSMENT AND PLAN: 1. Chronic obstructive pulmonary disease exacerbation. Upon exam, the patient appeared stable on 1 L of oxygen reporting that she wants to go home. Chest x- ray was negative for any pneumonia or TB. The patient's white blood cell count was within normal limits. We will continue Solu-Medrol and DuoNeb, and oxygen support as needed. We will recheck a CBC and a BMP in the morning. 2. Allergic reaction. The patient appears to have developed hives to unknown source. The patient's rash improved with Benadryl IV push. We will continue to monitor. We will recheck labs in the a.m. 3. Asthma We will restart patient's home meds. 4. Gastrointestinal and deep venous thrombosis prophylaxis. 5. Hospital course is dependent on clinical findings. Job ID: [id number] MTDD
[2019-04-25] MEDS: methylPREDNISolone Sod Succ 40 MG VIAL IVP SCH ×2 (04:58→11:58)
[2019-04-25 05:24] LABS: #Lymphocytes 0.6 thou/uL (1.20-3.40); #Monocytes 0.3 thou/uL (0.11-0.59); #Neutrophils 5.4 thou/uL (1.40-6.50); %Basophils 0.2 % (0.0-1.0); %Eosinophils 0.1 % (0.0-10.0); %Lymphocytes 8.8 % (21.0-51.0); %Monocytes 5.4 % (0.0-10.0); %Neutrophils 85.5 % (42.0-75.0); Hemoglobin 13.6 g/dL (12.0-16.0); Mean Corpuscular Hemoglobin 29.8 pg (27.0-31.0); Mean Corpuscular Volume 90.1 fL (78.0-98.0); Mean Platelet Volume 6.8 fL (7.4-10.4); Platelet Count 249 thou/uL (130-400); RBC Distribution Width 11.8 % (11.5-14.5); Red Blood Cell (RBC) Count 4.57 mill/uL (4.20-5.40); White Blood Cell (WBC) Count 6.3 thou/uL (4.8-10.8)
[2019-04-25 05:53] LABS: ALT (SGPT) 15 U/L (8-55); AST (SGOT) 22 U/L (5-34); Albumin 3.8 g/dL (3.4-4.8); Alkaline Phosphatase 68 U/L (40-150); Anion Gap 13 mmol/L (10-20); BUN (Urea Nitrogen) 16 mg/dL (9.8-20.1); Bilirubin, Total 0.2 mg/dL (0.2-1.2); Calc. Creatinine Clearance 62 mL/min (70-130); Calcium 9.3 mg/dL (7.8-10.44); Carbon Dioxide 24 mmol/L (23-31); Chloride 104 mmol/L (98-107); Estimated GFR-MDRD 79; Globulin 2.3 g/dL (2.4-3.5); Glucose 127 mg/dL (80-115); Potassium 4.3 mmol/L (3.5-5.1); Protein, Total 6.1 g/dL (6.0-8.3); Sodium 137 mmol/L (136-145)
[2019-04-25] MEDS ORDERED: Mometasone/Formoterol 120 PUFF INHALER INH SCH (06:30)
[2019-04-25] MEDS: Ipratropium Bromide 2.5 ml Neb NEB SCH (06:50)
[2019-04-25] MEDS: Famotidine 20 MG TAB PO SCH (08:53)
[2019-04-25] MEDS ORDERED: Enoxaparin Sodium 40 MG/0.4 ML SYRINGE SC SCH (09:00)
[2019-04-25] MEDS ORDERED: ACETYLCYSTEINE 600 MG PO SCH (09:00)
[2019-04-25] MEDS ORDERED: Acetylcysteine 20% 200 MG/ML 30 ML VIAL PO SCH (09:00)
[2019-04-25 12:38] VITALS: BP 100/59; TEMP 97.5
--- NOTE | 2019-04-26 02:12 | DIS ---
DATE OF ADMISSION: 04/24/2019 DATE OF DISCHARGE: 04/25/2019 CHIEF COMPLAINT ON ADMISSION: Shortness of breath and rash. DISCHARGE DIAGNOSES: 1. Shortness of breath, urticaria, secondary to anaphylactic reaction from NSAID (naproxen). 2. Chronic obstructive pulmonary disease. 3. Chronic hypoxic respiratory failure secondary to above. 4. History of tobacco abuse. BRIEF HOSPITAL COURSE: The patient is a very pleasant 68-year-old female with past medical history significant for chronic COPD, not requiring home O2, who presented to the hospital with complaints of shortness of breath and rash. The patient had been in her usual state of health up until around noon on the day of her admission. The patient works at [employer], and had decided to eat lunch outside. She suffers from chronic osteoarthritis as well, and usually takes tramadol for this, however, she had no new prescriptions from her PCP and so she decided to take naproxen along with Tylenol. She took four naproxen, and ate her lunch. She decided to eat outside in her car, to have some peace away from work. The patient finished her lunch and was walking inside when she began to feel very short of breath. She walked into the computer room, and sat down. She began feeling extremely short of breath along with some chest tightness. Coworkers called EMS , who promptly arrived. Her O2 saturation on arrival was 80%. The patient stated that she felt she could not get any air into her lungs. She also started to develop a rash consistent with hives/urticaria that began in her extremities and then spread proximally all the way through her trunk and up to her face. She was given 50 mg of IV Benadryl along with IV Solu-Medrol and breathing treatments. Her rash promptly resolved. Her O2 sats quickly improved with nebulizer treatments. She was admitted for close observation overnight. The patient had no recurrence of her symptoms. She feels that she is back to her baseline breathing. Her rash has completely resolved. This morning, she is back to her normal state of health. She has ambulated the halls without issue. Desaturation study revealed no desaturations on ambulation. O2 saturation resting was 95% with ambulation was 92%. She denies chest pain or shortness of breath at this time. She is tolerating a full diet. CONDITION AT DISCHARGE: Stable. DISCHARGE DISPOSITION: Home. DISCHARGE INSTRUCTIONS AND FOLLOWUP: I believe that the patient has an anaphylactic reaction and allergy to NSAIDs. I have counseled her heavily on the dangers of any further NSAID intake, including ibuprofen, Advil, Motrin, naproxen, or aspirin. She does understand. She will continue her home inhaler regimen and follow up with her aviation consultant, Dr. Beckford. She will be administered a Medrol Dosepak/tapering steroid dose. The patient will be discharged home today in good condition with followup instructions given. I have advised her to make followup appointments with both her primary care physician as well as her aviation consultant. She will continue a heart healthy, low-sodium diet. All questions were answered. The patient discharged in good condition today. Job ID: [id number] MTDD
== END 2019-04-25 13:25 | disposition home or self-care (01) ==
LOC: ERS 13:37 → 2SW 15:15
PROVIDERS: ADMIT Internal Medicine; ATTEND Internal Medicine
DX: T39.311A Poisoning by propionic acid derivatives, accidental (unintentional), initial encounter (principal); T78.2XXA Anaphylactic shock, unspecified, initial encounter; J44.1 Chronic obstructive pulmonary disease with (acute) exacerbation; J96.11 Chronic respiratory failure with hypoxia; M19.90 Unspecified osteoarthritis, unspecified site; Z87.891 Personal history of nicotine dependence; Z79.52 Long term (current) use of systemic steroids; Z79.899 Other long term (current) drug therapy
CPT/HCPCS: 36415; 71045; 80053; 82805; 83880; 84484; 85025; 93005; 94640; 94660; 94760; 96361; 96372; 96374; 96375; 96376; G0378; J1200; J1650; J2920; J7608; J7620

== ENCOUNTER 2022-12-01 19:03 | Inpatient (IN) | payer MEDICARE ==
[~2022-12-01 19:03] MED LIST: Iopamidol-370 76% 500 ML 1 ML ONE
[2022-12-01] MEDS ORDERED: Magnesium 2 GM/50 ML BAG (IN WATER) ONE (19:12)
[2022-12-01] MEDS ORDERED: Ipratropium/Albuterol 3 ML NEB ONE ×2 (19:12→20:26)
[2022-12-01 19:28] LABS: #Lymphocytes 0.7 thou/uL (1.20-3.40); #Monocytes 0.9 thou/uL (0.11-0.59); #Neutrophils 5.5 thou/uL (1.40-6.50); %Basophils 0.3 % (0.0-1.0); %Eosinophils 0.5 % (0.0-10.0); %Monocytes 12.6 % (0.0-10.0); %Neutrophils 76.7 % (42.0-75.0); Hemoglobin 13.6 g/dL (12.0-16.0); Mean Corpuscular HGB CONC 32.7 g/dL (32.0-36.0); Mean Corpuscular Hemoglobin 29.3 pg (27.0-31.0); Mean Corpuscular Volume 89.9 fl (78.0-98.0); Mean Platelet Volume 6.4 fL (7.4-10.4); Platelet Count 356 10x3/uL (130-400); RBC Distribution Width 12.1 % (11.5-14.5); Red Blood Cell (RBC) Count 4.65 mill/uL (4.20-5.40); White Blood Cell (WBC) Count 7.2 10x3/uL (4.8-10.8)
[2022-12-01 19:49] LABS: ALT (SGPT) 19 U/L (8-55); AST (SGOT) 27 U/L (5-34); Albumin 3.9 g/dL (3.4-4.8); Alkaline Phosphatase 102 U/L (40-110); Anion Gap 15 mmol/L (10-20); BUN (Urea Nitrogen) 12 mg/dL (9.8-20.1); Bilirubin, Total 0.3 mg/dL (0.2-1.2); Calc. Creatinine Clearance 0 mL/min (70-130); Calcium 9.7 mg/dL (7.8-10.44); Carbon Dioxide 27 mmol/L (23-31); Chloride 96 mmol/L (98-107); Estimated GFR 90; Globulin 3.2 g/dL (2.4-3.5); Glucose 134 mg/dL (83-110); Lipase 8 U/L (8-78); Potassium 4.4 mmol/L (3.5-5.1); Protein, Total 7.1 g/dL (5.8-8.1); Sodium 134 mmol/L (136-145)
[2022-12-01] MEDS ORDERED: Aspirin 300 MG Suppository ONE (20:00)
[2022-12-01] MEDS ORDERED: cefTRIAXone\\ROCEPHIN 1 GM VIAL ONE (20:00)
[2022-12-01] MEDS ORDERED: Aspirin Chewable 81 MG TAB ONE (20:00)
[2022-12-01 20:15] LABS: CKMB 6.7 ng/mL (0-6.6)
[2022-12-01 20:15] LABS: SARS-CoV-2 NAA Rapid Test Not Detected (NotDetected)
[2022-12-01] MEDS ORDERED: Azithromycin 500 MG VIAL ONE (20:17)
[2022-12-01] MEDS ORDERED: Ondansetron PF 4 MG/2 ML Vial IVP PRN (20:27)
[2022-12-01] MEDS ORDERED: Acetaminophen 325 MG TAB PO PRN (20:27)
[2022-12-01] MEDS ORDERED: Ipratropium/Albuterol 3 ML NEB EZPAP PRN (20:29)
[2022-12-01] MEDS ORDERED: Mometasone/Formoterol 200/5 60 PUFF INH SCH (20:30)
[2022-12-01] MEDS ORDERED: Pantoprazole 40 MG VIAL IVP SCH (20:45)
[2022-12-01 23:14] VITALS: BMI 20.1
[2022-12-01 23:29] LABS: Troponin I 0.356 ng/mL (< 0.028)
[2022-12-01] MEDS: methylPREDNISolone Sod Succ 40 MG VIAL IVP SCH (23:34)
[2022-12-01] MEDS ORDERED: Heparin 25,000 units/D5W 500 ML IVPB SCH (23:45)
[2022-12-01] MEDS: Ipratropium/Albuterol 3 ML NEB NEB SCH (23:48)
[2022-12-02] MEDS ORDERED: Nitroglycerin 0.4 MG TAB (25 Tab Bottle) SL PRN (00:09)
[2022-12-02] MEDS: Heparin 10,000 UNITS/ 10 ML VIAL SLOW IVP SCH ×2 (01:37→08:25)
[2022-12-02 01:43] LABS: #Lymphocytes 0.4 thou/uL (1.20-3.40); #Monocytes 0.2 thou/uL (0.11-0.59); #Neutrophils 6.2 thou/uL (1.40-6.50); %Eosinophils 0.1 % (0.0-10.0); %Lymphocytes 5.7 % (21.0-51.0); %Monocytes 3.3 % (0.0-10.0); %Neutrophils 90.9 % (42.0-75.0); Hemoglobin 13.1 g/dL (12.0-16.0); Mean Corpuscular HGB CONC 31.8 g/dL (32.0-36.0); Mean Corpuscular Hemoglobin 28.5 pg (27.0-31.0); Mean Corpuscular Volume 89.5 fl (78.0-98.0); Mean Platelet Volume 6.5 fL (7.4-10.4); Platelet Count 331 10x3/uL (130-400); RBC Distribution Width 12.1 % (11.5-14.5); Red Blood Cell (RBC) Count 4.61 mill/uL (4.20-5.40); White Blood Cell (WBC) Count 6.8 10x3/uL (4.8-10.8)
[2022-12-02 02:11] LABS: Anion Gap 14 mmol/L (10-20); BUN (Urea Nitrogen) 11 mg/dL (9.8-20.1); Calc. Creatinine Clearance 63 mL/min (70-130); Carbon Dioxide 27 mmol/L (23-31); Chloride 100 mmol/L (98-107); Estimated GFR 94; Glucose 154 mg/dL (83-110); Potassium 4.6 mmol/L (3.5-5.1); Sodium 136 mmol/L (136-145); Troponin I 0.698 ng/mL (< 0.028)
[2022-12-02] MEDS: Ipratropium/Albuterol 3 ML NEB NEB SCH ×6 (02:27→22:21)
[2022-12-02] MEDS: Mometasone 200 MCG/Formoterol 5 MCG 120 PUFF INHALER INH SCH ×2 (06:32→18:24)
[2022-12-02] MEDS: methylPREDNISolone Sod Succ 40 MG VIAL IVP SCH ×3 (06:38→18:39)
[2022-12-02 08:29] LABS: Troponin I 1.165 ng/mL (< 0.028)
[2022-12-02 13:09] LABS: Legionella Urinary Ag Negative (Negative); Strep pneumo Urine Ag NEGATIVE (NEGATIVE)
[2022-12-02] MEDS: Budesonide 0.5 MG/2 ML NEB NEB SCH (18:14)
[2022-12-02] MEDS: cefTRIAXone\\ROCEPHIN 1 GM in Sodium Chloride 0.9% 100 ML IVPB SCH (20:36)
[2022-12-02] MEDS: Rosuvastatin 20 MG TAB PO SCH (20:36)
[2022-12-02] MEDS: Azithromycin 500 MG in Sodium Chloride 0.9% 250 ML 250 ML IVPB SCH (20:52)
[2022-12-03] MEDS: methylPREDNISolone Sod Succ 40 MG VIAL IVP SCH ×5 (00:03→23:55)
[2022-12-03] MEDS: Ipratropium/Albuterol 3 ML NEB NEB SCH ×6 (00:47→23:36)
[2022-12-03] MEDS: Budesonide 0.5 MG/2 ML NEB NEB SCH ×2 (07:55→19:37)
[2022-12-03] MEDS: Mometasone 200 MCG/Formoterol 5 MCG 120 PUFF INHALER INH SCH ×2 (07:55→19:38)
[2022-12-03] MEDS: Aspirin 81 mg Enteric Coated Tablet PO SCH (08:23)
[2022-12-03] MEDS: Azithromycin 500 MG in Sodium Chloride 0.9% 250 ML 250 ML IVPB SCH (20:46)
[2022-12-03] MEDS: Rosuvastatin 20 MG TAB PO SCH (20:46)
[2022-12-03] MEDS: cefTRIAXone\\ROCEPHIN 1 GM in Sodium Chloride 0.9% 100 ML IVPB SCH (20:46)
[2022-12-04] MEDS: Ipratropium/Albuterol 3 ML NEB NEB SCH ×6 (03:36→23:24)
[2022-12-04] MEDS: methylPREDNISolone Sod Succ 40 MG VIAL IVP SCH (05:12)
[2022-12-04] MEDS: Mometasone 200 MCG/Formoterol 5 MCG 120 PUFF INHALER INH SCH ×2 (07:57→18:59)
[2022-12-04] MEDS: Budesonide 0.5 MG/2 ML NEB NEB SCH ×2 (07:57→18:59)
[2022-12-04] MEDS: Aspirin 81 mg Enteric Coated Tablet PO SCH (08:03)
[2022-12-04] MEDS ORDERED: predniSONE 20 MG TAB PO SCH (11:00)
[2022-12-04] MEDS: predniSONE 20 MG TAB PO SCH (11:50)
[2022-12-04] MEDS: Rosuvastatin 20 MG TAB PO SCH (20:45)
[2022-12-04] MEDS: cefTRIAXone\\ROCEPHIN 1 GM in Sodium Chloride 0.9% 100 ML IVPB SCH (20:45)
[2022-12-04] MEDS: Azithromycin 500 MG in Sodium Chloride 0.9% 250 ML 250 ML IVPB SCH (21:19)
[2022-12-04] MEDS ORDERED: Nystatin 500,000 UNITS/5 ML UDCUP SSW SCH (21:45)
[2022-12-05] MEDS: Ipratropium/Albuterol 3 ML NEB NEB SCH ×6 (00:49→23:16)
[2022-12-05 05:47] LABS: Hemoglobin 13.7 g/dL (12.0-16.0); Mean Corpuscular HGB CONC 31.6 g/dL (32.0-36.0); Mean Corpuscular Hemoglobin 28.7 pg (27.0-31.0); Mean Platelet Volume 6.6 fL (7.4-10.4); Platelet Count 383 10x3/uL (130-400); RBC Distribution Width 12.5 % (11.5-14.5); Red Blood Cell (RBC) Count 4.77 mill/uL (4.20-5.40); White Blood Cell (WBC) Count 10.4 10x3/uL (4.8-10.8)
[2022-12-05 06:15] LABS: Anion Gap 14 mmol/L (10-20); BUN (Urea Nitrogen) 14 mg/dL (9.8-20.1); Calc. Creatinine Clearance 56 mL/min (70-130); Carbon Dioxide 28 mmol/L (23-31); Chloride 97 mmol/L (98-107); Estimated GFR 90; Glucose 102 mg/dL (83-110); Potassium 3.9 mmol/L (3.5-5.1); Sodium 135 mmol/L (136-145)
[2022-12-05] MEDS: Budesonide 0.5 MG/2 ML NEB NEB SCH ×2 (07:20→19:10)
[2022-12-05] MEDS: Mometasone 200 MCG/Formoterol 5 MCG 120 PUFF INHALER INH SCH ×2 (07:20→19:11)
[2022-12-05] MEDS: Aspirin 81 mg Enteric Coated Tablet PO SCH (09:15)
[2022-12-05] MEDS: Nystatin 500,000 UNITS/5 ML UDCUP SSW SCH ×4 (09:16→20:59)
[2022-12-05] MEDS: predniSONE 20 MG TAB PO SCH (09:18)
[2022-12-05] MEDS: cefTRIAXone\\ROCEPHIN 1 GM in Sodium Chloride 0.9% 100 ML IVPB SCH (20:58)
[2022-12-05] MEDS: Rosuvastatin 20 MG TAB PO SCH (20:59)
[2022-12-06] MEDS: Ipratropium/Albuterol 3 ML NEB NEB SCH ×4 (03:21→14:54)
[2022-12-06 05:23] LABS: #Eosinphils 0.1 thou/uL (0.0-0.7); #Lymphocytes 1.5 thou/uL (1.20-3.40); #Neutrophils 6.6 thou/uL (1.40-6.50); %Basophils 0.1 % (0.0-1.0); %Eosinophils 0.7 % (0.0-10.0); %Lymphocytes 16.5 % (21.0-51.0); %Monocytes 10.7 % (0.0-10.0); Hemoglobin 12.9 g/dL (12.0-16.0); Mean Corpuscular Hemoglobin 28.7 pg (27.0-31.0); Mean Corpuscular Volume 89.7 fl (78.0-98.0); Mean Platelet Volume 6.2 fL (7.4-10.4); Platelet Count 371 10x3/uL (130-400); RBC Distribution Width 12.2 % (11.5-14.5); White Blood Cell (WBC) Count 9.1 10x3/uL (4.8-10.8)
[2022-12-06 05:40] LABS: Anion Gap 13 mmol/L (10-20); BUN (Urea Nitrogen) 11 mg/dL (9.8-20.1); Calc. Creatinine Clearance 62 mL/min (70-130); Calcium 8.5 mg/dL (7.8-10.44); Carbon Dioxide 29 mmol/L (23-31); Chloride 97 mmol/L (98-107); Estimated GFR 93; Glucose 80 mg/dL (83-110); Magnesium 2.1 mg/dL (1.6-2.6); Potassium 3.6 mmol/L (3.5-5.1); Sodium 135 mmol/L (136-145)
[2022-12-06] MEDS: Mometasone 200 MCG/Formoterol 5 MCG 120 PUFF INHALER INH SCH (07:06)
[2022-12-06] MEDS: Budesonide 0.5 MG/2 ML NEB NEB SCH (07:06)
[2022-12-06] MEDS: Nystatin 500,000 UNITS/5 ML UDCUP SSW SCH ×2 (07:59→12:02)
[2022-12-06] MEDS: Aspirin 81 mg Enteric Coated Tablet PO SCH (08:00)
[2022-12-06] MEDS: predniSONE 20 MG TAB PO SCH (08:00)
[2022-12-06] MEDS ORDERED: guaiFENesin/Codeine 200 mg/20 mg 10 ml Cup PO PRN (08:53)
[2022-12-06] MEDS ORDERED: Potassium Chloride 20 MEQ TAB PO SCH (09:15)
[2022-12-06] MEDS ORDERED: Digoxin 0.5 MG/2 ML AMP SLOW IVP SCH (09:45)
[2022-12-06 12:08] VITALS: BP 103/55
[2022-12-06 15:50] VITALS: TEMP 98.6
== END 2022-12-06 17:27 | disposition home or self-care (01) | DRG 193 ==
LOC: ERS 19:03 → 2SW 20:21
PROVIDERS: ADMIT Internal Medicine; ATTEND Internal Medicine
DX: J15.9 Unspecified bacterial pneumonia (principal); I21.A1 Myocardial infarction type 2; J96.01 Acute respiratory failure with hypoxia; Z20.822 Contact with and (suspected) exposure to COVID-19; J43.9 Emphysema, unspecified; M79.7 Fibromyalgia; R91.1 Solitary pulmonary nodule; E78.00 Pure hypercholesterolemia, unspecified; Z90.710 Acquired absence of both cervix and uterus; Z87.891 Personal history of nicotine dependence; Z79.51 Long term (current) use of inhaled steroids; Z79.899 Other long term (current) drug therapy; Z88.5 Allergy status to narcotic agent
CPT/HCPCS: 36415; 71045; 71275; 80048; 80053; 82553; 83690; 83735; 83880; 84484; 85025; 85027; 85730; 87070; 87205; 87449; 87899; 93005; 93306; 93798; 94640; 94760; 96374; 96375; C9113; J0456; J0696; J1644; J1650; J2920; J3475; J3490; J7050; J7512; J7611; J7620; J7626; Q9967

== ENCOUNTER 2022-12-26 11:59 | Outpatient (CLI) | payer MEDICARE ==
[2022-12-26 13:16] LABS: ALT (SGPT) 14 U/L (8-55); AST (SGOT) 14 U/L (5-34); Albumin 3.9 g/dL (3.4-4.8); Alkaline Phosphatase 66 U/L (40-110); Anion Gap 13 mmol/L (10-20); BUN (Urea Nitrogen) 17 mg/dL (9.8-20.1); Bilirubin, Total 0.3 mg/dL (0.2-1.2); Calc. Creatinine Clearance 0 mL/min (70-130); Calcium 9.4 mg/dL (7.8-10.44); Carbon Dioxide 31 mmol/L (23-31); Chloride 98 mmol/L (98-107); Estimated GFR 87; Globulin 2.4 g/dL (2.4-3.5); Glucose 103 mg/dL (83-110); Potassium 5.1 mmol/L (3.5-5.1); Protein, Total 6.3 g/dL (5.8-8.1); Sodium 137 mmol/L (136-145)
[2022-12-26 13:35] LABS: #Monocytes 0.4 10x3/uL (0.0-1.1); #Neutrophils 8.1 10x3/uL (1.5-8.4); %Basophils 0.1 % (0.0-2.0); %Lymphocytes 9.6 % (18.0-47.0); %Neutrophils 85.7 % (40.0-75.0); Hemoglobin 12.7 g/dL (12.0-15.5); Mean Corpuscular HGB CONC 32.2 g/dL (32.0-36.0); Mean Platelet Volume 8.9 fl (7.4-10.4); Platelet Count 392 10x3/uL (150-450); RBC Distribution Width 13.6 % (11.5-14.5); Red Blood Cell (RBC) Count 4.53 10x6/uL (3.90-5.03); White Blood Cell (WBC) Count 9.4 10x3/uL (3.5-10.5)
== END 2022-12-26 12:00 | disposition home or self-care (01) ==
LOC: LABBT 11:59
PROVIDERS: ATTEND Internal Medicine Cardiovascular Disease
DX: Z01.812 Encounter for preprocedural laboratory examination (principal); I21.4 Non-ST elevation (NSTEMI) myocardial infarction
CPT/HCPCS: 80053; 85025

== ENCOUNTER 2022-12-27 05:35 | Day surgery (SDC) | payer MEDICARE ==
[2022-12-26 12:46] VITALS: BMI 20.1
[2022-12-27] MEDS ORDERED: Verapamil 5 MG/2 ML VIAL ONE (06:25)
[2022-12-27] MEDS ORDERED: Heparin 10,000 UNITS/ 10 ML VIAL ONE (06:25)
[2022-12-27] MEDS ORDERED: Adenosine 6 MG/2 ML VIAL ONE (06:25)
[2022-12-27] MEDS ORDERED: Lidocaine 1% (PF) 30 ML VIAL ONE (06:25)
[2022-12-27] MEDS ORDERED: Nitroglycerin 100MG/250ML BOT 0 ML ONE (06:25)
[2022-12-27] MEDS ORDERED: Midazolam HCl 2 mg/2 ml Vial ONE (07:35)
[2022-12-27] MEDS ORDERED: FENTANYL 50 MCG/ML 1 ML VIAL ONE (07:35)
[2022-12-27] MEDS ORDERED: Fentanyl 100 MCG/2 ML VIAL ONE ×2 (09:04→11:53)
== END 2022-12-27 12:50 | disposition home or self-care (01) ==
LOC: SDC 05:35
PROVIDERS: ATTEND Internal Medicine Cardiovascular Disease
PROC: 4A023N7 Measurement of Cardiac Sampling and Pressure, Left Heart, Percutaneous Approach (ICD-10-PCS; principal; 2022-12-27)
PROC: B2111ZZ Fluoroscopy of Multiple Coronary Arteries using Low Osmolar Contrast (ICD-10-PCS; 2022-12-27)
DX: I25.10 Atherosclerotic heart disease of native coronary artery without angina pectoris (principal); I25.82 Chronic total occlusion of coronary artery; I73.9 Peripheral vascular disease, unspecified; I25.2 Old myocardial infarction; M79.7 Fibromyalgia; J44.9 Chronic obstructive pulmonary disease, unspecified; Z87.891 Personal history of nicotine dependence; Z79.52 Long term (current) use of systemic steroids; Z79.82 Long term (current) use of aspirin; Z79.899 Other long term (current) drug therapy; Z88.6 Allergy status to analgesic agent
CPT/HCPCS: 93459; C1769 ×3; J0153; J1644; J2001; J2250; J3010

== ENCOUNTER 2023-01-04 08:52 | Outpatient (CLI) | payer MEDICARE | END 2023-01-04 08:53 | disposition home or self-care (01) | LOC: LABBT 08:52 | PROVIDERS: ATTEND Thoracic Surgery (Cardiothoracic Vascular Surgery) | DX: Z53.9 Procedure and treatment not carried out, unspecified reason (principal) | CPT/HCPCS: 80048; 85027; 86850; 86900; 86901 ==

== ENCOUNTER 2023-01-04 09:15 | Inpatient (IN) | payer MEDICARE ==
[2023-01-04 13:14] LABS: Hemoglobin 14.3 g/dL (12.0-16.0); Mean Corpuscular HGB CONC 30.8 g/dL (32.0-36.0); Mean Corpuscular Hemoglobin 28.4 pg (27.0-31.0); Mean Platelet Volume 6.6 fL (7.4-10.4); Platelet Count 437 10x3/uL (130-400); RBC Distribution Width 13.9 % (11.5-14.5); Red Blood Cell (RBC) Count 5.03 mill/uL (4.20-5.40); White Blood Cell (WBC) Count 9.7 10x3/uL (4.8-10.8)
[2023-01-07] MEDS ORDERED: Lidocaine 1% MPF 2 ML VIAL ONE (05:46)
[2023-01-07] MEDS ORDERED: Albumin 5% 500 ML ONE (06:17)
[2023-01-07] MEDS ORDERED: Midazolam HCl 5 mg/5 ml Vial ONE (06:18)
[2023-01-07] MEDS ORDERED: Fentanyl 250 MCG/5 ML VIAL ONE (06:18)
[2023-01-07] MEDS ORDERED: Heparin 10,000 UNITS/1 ML VIAL 30,000 UNITS in Sodium Chloride 0.9% 1,000 ML FS SCH (07:00)
[2023-01-07] MEDS ORDERED: CEFAZOLIN 2 GM VIAL ONE (07:15)
[2023-01-07] MEDS ORDERED: Sodium Chloride 0.9% 100 ML ONE (07:15)
[2023-01-07 07:21] LABS: SARS-CoV-2 NAA Rapid Test Not Detected (NotDetected)
[2023-01-07] MEDS ORDERED: Heparin 30,000 units/30 ml VIAL ONE (07:21)
[2023-01-07] MEDS ORDERED: Nitroglycerin 50 MG/250 ML BOT ONE (07:21)
[2023-01-07] MEDS ORDERED: Protamine Sulfate 250 MG/25 ML VIAL ONE (07:21)
[2023-01-07] MEDS ORDERED: Vecuronium 10 MG VIAL ONE (07:21)
[2023-01-07] MEDS ORDERED: Lidocaine 2% PF 100 mg/5 ml Syringe ONE (07:21)
[2023-01-07] MEDS ORDERED: Potassium Chloride 60 MEQ/30 ML VIAL ONE (07:21)
[2023-01-07] MEDS ORDERED: Thrombin 5000 UNITS/5 ML VIAL ONE (07:21)
[2023-01-07] MEDS ORDERED: Heparin 5,000 UNITS/ML VIAL ONE (07:21)
[2023-01-07] MEDS ORDERED: Aminocaproic Acid 5 GM/20 ML VIAL ONE (07:21)
[2023-01-07] MEDS ORDERED: Cardioplegic Soln 1,000 ML BAG ONE (07:21)
[2023-01-07] MEDS ORDERED: Labetalol HCl 100 MG/20 ML VIAL ONE (07:21)
[2023-01-07] MEDS ORDERED: Calcium Chloride 1 GM/10 ML Abboject SYRINGE ONE (07:21)
[2023-01-07] MEDS ORDERED: Vancomycin 1 GM VIAL ONE (07:21)
[2023-01-07] MEDS ORDERED: Sodium Bicarb 50 MEQ/50 ML VIAL ONE (07:21)
[2023-01-07] MEDS ORDERED: Magnesium 5 GM/10 ML VIAL ONE (07:21)
[2023-01-07] MEDS ORDERED: Mannitol 12.5 GM/50 ML ONE (07:21)
[2023-01-07] MEDS ORDERED: Ondansetron PF 4 MG/2 ML Vial ONE (07:21)
[2023-01-07] MEDS ORDERED: Norepinephrine 4 MG/4 ML VIAL ONE (07:21)
[2023-01-07] MEDS ORDERED: Papaverine 60 MG/2 ML VIAL ONE (07:21)
[2023-01-07] MEDS ORDERED: Dexamethasone 20 MG/5 ML VIAL ONE (07:21)
[2023-01-07] MEDS ORDERED: PHENYLEPHRINE-NS 100 MCG/ML 10 ML SYRINGE ONE (08:54)
[2023-01-07] MEDS ORDERED: Albuterol 200 PUFF (6.7GM INHALER) INH PRN (10:58)
[2023-01-07] MEDS ORDERED: Hetastarch 6% 500 ML 500 ML IVPB PRN (11:02)
[2023-01-07] MEDS ORDERED: Morphine 2 MG/ML VIAL SLOW IVP PRN (11:02)
[2023-01-07] MEDS ORDERED: Promethazine HCl 25 MG/ML VIAL IM PRN (11:02)
[2023-01-07] MEDS ORDERED: niCARdipine 25 MG in Sodium Chloride 0.9% 250 ML 250 ML IVPB PRN (11:02)
[2023-01-07] MEDS ORDERED: Guaifenesin DM 100-10/5 ML UDCUP PO PRN (11:02)
[2023-01-07] MEDS ORDERED: Bisacodyl 10 MG SUPP PR PRN (11:02)
[2023-01-07] MEDS ORDERED: Acetaminophen 325 MG TAB PO PRN (11:02)
[2023-01-07] MEDS ORDERED: Ondansetron PF 4 MG/2 ML Vial IVP PRN (11:02)
[2023-01-07] MEDS ORDERED: NOREPINEPHRINE 8 MG/250 ML-D5W 250 ML IVPB PRN (11:02)
[2023-01-07] MEDS ORDERED: Ipratropium/Albuterol 3 ML NEB NEB PRN (11:02)
[2023-01-07] MEDS ORDERED: HYDROcodone/Acetaminophen 5/325 mg Tablet PO PRN (11:02)
[2023-01-07] MEDS ORDERED: Potassium Chloride 20 MEQ/100 ML PREMIX BAG IVPB PRN (11:02)
[2023-01-07] MEDS ORDERED: Post-Op Insulin Drip Protocol IVPB ONE (11:02)
[2023-01-07] MEDS ORDERED: HUMULIN R 100 UNITS in Sodium Chloride 0.9% 100 ML IVPB SCH (11:15)
[2023-01-07] MEDS ORDERED: Dextrose 50% Abboject 50 ML SYRINGE SLOW IVP PRN (11:15)
[2023-01-07] MEDS ORDERED: Dextrose 5% in Water 1,000 ML IV PRN (11:15)
[2023-01-07 11:27] LABS: Actual Bicarbonate (HCO3a) 29.5 mEq/L (22-28); Analyzer IN Cardio OR; Base Excess (BEa) 2.7 mEq/L (-2.0 to +3.0); CO2 Tension 59.2 mmHg (35.0-45.0); Calcium, Ionized (arterial) 1.02 mmol/L (1.12-1.30); Carboxyhemoglobin (COHb) 1.3 gm% (0.0-3.0); Hemoglobin (Hb) 8.4 g/dL (12.0-16.0); O2 Tension (PaO2), arterial 519.2 mmHg (> 70.0); pH, Arterial 7.32 (7.35-7.45)
[2023-01-07 11:28] LABS: Puncture Site Arterial Line
[2023-01-07] MEDS: Lactated Ringer's 1,000 ML IV SCH (11:30)
[2023-01-07 11:31] LABS: Actual Bicarbonate (HCO3a) 24.5 mEq/L (22-28); Base Excess (BEa) -1.6 mEq/L (-2.0 to +3.0); CO2 Tension 47.3 mmHg (35.0-45.0); Calcium, Ionized (arterial) 1.21 mmol/L (1.12-1.30); Carboxyhemoglobin (COHb) 0.3 gm% (0.0-3.0); Hemoglobin (Hb) 11.5 g/dL (12.0-16.0); O2 Tension (PaO2), arterial 320.2 mmHg (> 70.0); Potassium - ABG Lab 3.88 mmol/L (3.70-5.30); pH, Arterial 7.33 (7.35-7.45)
[2023-01-07 11:32] LABS: Puncture Site Arterial Line
[2023-01-07 11:33] LABS: ALV-art Gradient -22.825 mmHg (0-20)
[2023-01-07] MEDS ORDERED: Albuterol 2.5 MG/0.5 ML NEB NEB PRN (11:45)
[2023-01-07 11:52] LABS: Hemoglobin 10.9 g/dL (12.0-16.0); Mean Corpuscular HGB CONC 32.1 g/dL (32.0-36.0); Mean Corpuscular Hemoglobin 29.3 pg (27.0-31.0); Mean Corpuscular Volume 91.3 fl (78.0-98.0); Mean Platelet Volume 6.3 fL (7.4-10.4); Platelet Count 216 10x3/uL (130-400); RBC Distribution Width 13.5 % (11.5-14.5); Red Blood Cell (RBC) Count 3.73 mill/uL (4.20-5.40); White Blood Cell (WBC) Count 26.1 10x3/uL (4.8-10.8)
[2023-01-07 12:02] LABS: INR-International Normal Ratio 1.3; Prothrombin Time 16.4 sec (12.0-14.7)
[2023-01-07 12:05] LABS: Band 10 % (5-11); Lymphocytes 5 % (21-51); MDiff Complete? YES; Monocytes 1 % (0-10); Neutrophil 82 % (42-75); Platelet Morphology Comment Appears Adequate; Polychromasia SLIGHT = 2-3 cells (100X) (0-2/hpf); Reactive Lymphocytes 1 % (0-10); Small Platelets SLIGHT
[2023-01-07 12:09] LABS: Anion Gap 9 mmol/L (10-20); BUN (Urea Nitrogen) 12 mg/dL (9.8-20.1); Calc. Creatinine Clearance 68 mL/min (70-130); Calcium 8.3 mg/dL (7.8-10.44); Carbon Dioxide 23 mmol/L (23-31); Chloride 109 mmol/L (98-107); Estimated GFR 96; Glucose 178 mg/dL (83-110); Sodium 137 mmol/L (136-145)
[2023-01-07 12:29] VITALS: BMI 22.1
[2023-01-07] MEDS ORDERED: Electrolyte Replacement Protocol 1 EACH FS SCH (12:45)
[2023-01-07] MEDS ORDERED: Fentanyl CADD 100 ML IV SCH (12:45)
[2023-01-07] MEDS ORDERED: Ventilator Sedation Protocol 1 EACH FS SCH (12:45)
[2023-01-07] MEDS ORDERED: Fentanyl BOLUS 250 ML IVPB PRN (12:45)
[2023-01-07] MEDS ORDERED: Morphine 4 MG/ML VIAL SLOW IVP PRN (12:45)
[2023-01-07] MEDS ORDERED: Propofol 1,000 MG/100 ML VIAL IV PRN (12:45)
[2023-01-07] MEDS ORDERED: Propofol BOLUS 1,000 MG/100 ML VIAL IV PRN (12:45)
[2023-01-07] MEDS ORDERED: Lorazepam 2 MG/ML VIAL SLOW IVP PRN (12:45)
[2023-01-07] MEDS ORDERED: Ipratropium Bromide 2.5 ml Neb NEB SCH (13:00)
[2023-01-07] MEDS: Fentanyl 100 MCG/2 ML VIAL SLOW IVP PRN ×3 (13:56→22:23)
[2023-01-07] MEDS: CEFAZOLIN 2 GM in Sodium Chloride 0.9% 100 ML IVPB SCH (14:24)
[2023-01-07 14:37] LABS: Actual Bicarbonate (HCO3a) 25.8 mEq/L (22-28); Base Excess (BEa) -0.8 mEq/L (-2.0 to +3.0); CO2 Tension 51.5 mmHg (35.0-45.0); Carboxyhemoglobin (COHb) 0.8 gm% (0.0-3.0); Hemoglobin (Hb) 11.4 g/dL (12.0-16.0); O2 Tension (PaO2), arterial 75.9 mmHg (> 70.0); Potassium - ABG Lab 4.33 mmol/L (3.70-5.30); pH, Arterial 7.32 (7.35-7.45)
[2023-01-07 14:38] LABS: ALV-art Gradient 151.325 mmHg (0-20); Puncture Site Arterial Line
[2023-01-07] MEDS: Ipratropium/Albuterol 3 ML NEB NEB SCH ×3 (15:20→22:46)
[2023-01-07] MEDS: HYDROcodone/Acetaminophen 5/325 mg Tablet PO PRN (17:10)
[2023-01-07 17:11] LABS: Hemoglobin 10.6 g/dL (12.0-16.0)
[2023-01-07 17:27] LABS: Potassium 4.3 mmol/L (3.5-5.1)
[2023-01-07] MEDS ORDERED: Ketorolac Tromethamine 30 MG/ML VIAL IVP SCH (18:15)
[2023-01-07] MEDS: Budesonide 0.5 MG/2 ML NEB NEB SCH (19:16)
[2023-01-07] MEDS: hydrALAZINE 20 MG/ML VIAL SLOW IVP PRN (19:49)
[2023-01-07] MEDS: Atorvastatin Calcium 20 MG TAB PO SCH (19:49)
[2023-01-07] MEDS: Famotidine/PF 20 mg/2ml Vial SLOW IVP SCH (19:49)
[2023-01-08] MEDS: CEFAZOLIN 2 GM in Sodium Chloride 0.9% 100 ML IVPB SCH ×2 (00:33→07:42)
[2023-01-08] MEDS: Ketorolac Tromethamine 30 MG/ML VIAL IVP SCH ×3 (02:06→17:37)
[2023-01-08] MEDS: Ipratropium/Albuterol 3 ML NEB NEB SCH ×6 (02:48→22:31)
[2023-01-08] MEDS: Fentanyl 100 MCG/2 ML VIAL SLOW IVP PRN (03:24)
[2023-01-08 05:11] LABS: #Lymphocytes 0.6 thou/uL (1.20-3.40); #Monocytes 0.9 thou/uL (0.11-0.59); #Neutrophils 16.1 thou/uL (1.40-6.50); %Lymphocytes 3.4 % (21.0-51.0); %Monocytes 5.3 % (0.0-10.0); %Neutrophils 91.2 % (42.0-75.0); Mean Corpuscular HGB CONC 32.3 g/dL (32.0-36.0); Mean Corpuscular Hemoglobin 29.3 pg (27.0-31.0); Mean Corpuscular Volume 90.7 fl (78.0-98.0); Mean Platelet Volume 6.7 fL (7.4-10.4); Platelet Count 181 10x3/uL (130-400); RBC Distribution Width 13.6 % (11.5-14.5); Red Blood Cell (RBC) Count 3.42 mill/uL (4.20-5.40); White Blood Cell (WBC) Count 17.7 10x3/uL (4.8-10.8)
[2023-01-08 05:44] LABS: Anion Gap 11 mmol/L (10-20); BUN (Urea Nitrogen) 15 mg/dL (9.8-20.1); Calc. Creatinine Clearance 69 mL/min (70-130); Calcium 8.9 mg/dL (7.8-10.44); Carbon Dioxide 25 mmol/L (23-31); Chloride 104 mmol/L (98-107); Estimated GFR 94; Glucose 127 mg/dL (83-110); Potassium 4.4 mmol/L (3.5-5.1); Sodium 136 mmol/L (136-145)
[2023-01-08] MEDS: HYDROcodone/Acetaminophen 5/325 mg Tablet PO PRN ×3 (06:09→19:50)
[2023-01-08] MEDS: Budesonide 0.5 MG/2 ML NEB NEB SCH ×2 (07:11→19:11)
[2023-01-08] MEDS: Famotidine/PF 20 mg/2ml Vial SLOW IVP SCH ×2 (07:42→19:53)
[2023-01-08] MEDS: Magnesium 2 GM/50 ML(in water) 2 GM in Premix Bag 1 BAG IVPB SCH (07:42)
[2023-01-08] MEDS: Aspirin 325 MG TAB PO SCH (07:42)
[2023-01-08] MEDS: Lactated Ringer's 1,000 ML IV SCH (07:52)
[2023-01-08] MEDS ORDERED: ACETYLCYSTEINE 600 MG PO SCH (09:00)
[2023-01-08] MEDS ORDERED: Insulin Glargine 30 UNITS/0.3 ML VIAL SC PRN (11:08)
[2023-01-08] MEDS ORDERED: Albumin 25% 25 GM/100 ML BOT IVPB SCH (12:30)
[2023-01-08 12:36] LABS: Actual Bicarbonate (HCO3a) 26.8 mEq/L (22-28); Analyzer IN Cardio OR; CO2 Tension 53.3 mmHg (35.0-45.0); Calcium, Ionized (arterial) 1.12 mmol/L (1.12-1.30); Carboxyhemoglobin (COHb) 0.7 gm% (0.0-3.0); Hemoglobin (Hb) 11.4 g/dL (12.0-16.0); O2 Tension (PaO2), arterial 200.9 mmHg (> 70.0); Potassium - ABG Lab 3.48 mmol/L (3.70-5.30); pH, Arterial 7.32 (7.35-7.45)
[2023-01-08 12:37] LABS: Analyzer IN Cardio OR; Base Excess (BEa) -0.7 mEq/L (-2.0 to +3.0); Carboxyhemoglobin (COHb) 0.7 gm% (0.0-3.0); Hemoglobin (Hb) 8.4 g/dL (12.0-16.0); O2 Tension (PaO2), arterial 375.6 mmHg (> 70.0); Potassium - ABG Lab 3.96 mmol/L (3.70-5.30)
[2023-01-08 12:37] LABS: Actual Bicarbonate (HCO3a) 23.9 mEq/L (22-28); Analyzer IN Cardio OR; Base Excess (BEa) -1.6 mEq/L (-2.0 to +3.0); CO2 Tension 44.1 mmHg (35.0-45.0); Calcium, Ionized (arterial) 1.27 mmol/L (1.12-1.30); Carboxyhemoglobin (COHb) 0.5 gm% (0.0-3.0); Hemoglobin (Hb) 8.2 g/dL (12.0-16.0); O2 Tension (PaO2), arterial 356.6 mmHg (> 70.0); Potassium - ABG Lab 3.86 mmol/L (3.70-5.30); pH, Arterial 7.35 (7.35-7.45)
[2023-01-08 12:37] LABS: Actual Bicarbonate (HCO3a) 23.7 mEq/L (22-28); Analyzer IN Cardio OR; Base Excess (BEa) -2.3 mEq/L (-2.0 to +3.0); CO2 Tension 45.8 mmHg (35.0-45.0); Calcium, Ionized (arterial) 1.22 mmol/L (1.12-1.30); Carboxyhemoglobin (COHb) 0.6 gm% (0.0-3.0); Hemoglobin (Hb) 10.7 g/dL (12.0-16.0); O2 Tension (PaO2), arterial 495.1 mmHg (> 70.0); Potassium - ABG Lab 4.05 mmol/L (3.70-5.30); pH, Arterial 7.33 (7.35-7.45)
[2023-01-08 12:38] LABS: Puncture Site Arterial Line
[2023-01-08 12:40] LABS: Calcium, Ionized (arterial) 1.63 mmol/L (1.12-1.30); Puncture Site Arterial Line
[2023-01-08 12:41] LABS: Puncture Site Arterial Line
[2023-01-08 12:42] LABS: Puncture Site Arterial Line
[2023-01-08 12:56] LABS: Actual Bicarbonate (HCO3a) 27.3 mEq/L (22-28); Analyzer IN Cardio OR; Base Excess (BEa) 1.9 mEq/L (-2.0 to +3.0); CO2 Tension 46.1 mmHg (35.0-45.0); Calcium, Ionized (arterial) 1.14 mmol/L (1.12-1.30); Carboxyhemoglobin (COHb) 1.2 gm% (0.0-3.0); Hemoglobin (Hb) 12.7 g/dL (12.0-16.0); O2 Tension (PaO2), arterial 506.3 mmHg (> 70.0); Potassium - ABG Lab 3.67 mmol/L (3.70-5.30); pH, Arterial 7.39 (7.35-7.45)
[2023-01-08 12:57] LABS: Puncture Site Arterial Line
[2023-01-08] MEDS: Atorvastatin Calcium 20 MG TAB PO SCH (19:53)
[2023-01-08] MEDS: Insulin Regular 300 UNITS/3 ML VIAL SC PRN (23:39)
[2023-01-09] MEDS: HYDROcodone/Acetaminophen 5/325 mg Tablet PO PRN ×3 (00:38→18:14)
[2023-01-09] MEDS: Fentanyl 100 MCG/2 ML VIAL SLOW IVP PRN (00:47)
[2023-01-09] MEDS: hydrALAZINE 20 MG/ML VIAL SLOW IVP PRN (00:47)
[2023-01-09] MEDS: Ketorolac Tromethamine 30 MG/ML VIAL IVP SCH ×3 (01:35→18:10)
[2023-01-09] MEDS: Ipratropium/Albuterol 3 ML NEB NEB SCH ×6 (01:57→22:34)
[2023-01-09] MEDS: Mag-Al 1200 mg/1200 mg/30 ML UDCUP PO PRN (02:21)
[2023-01-09 04:23] LABS: #Lymphocytes 0.6 thou/uL (1.20-3.40); #Monocytes 0.9 thou/uL (0.11-0.59); %Basophils 0.1 % (0.0-1.0); %Lymphocytes 4.7 % (21.0-51.0); %Monocytes 6.4 % (0.0-10.0); %Neutrophils 88.8 % (42.0-75.0); Hemoglobin 8.8 g/dL (12.0-16.0); Mean Corpuscular HGB CONC 32.3 g/dL (32.0-36.0); Mean Corpuscular Hemoglobin 29.2 pg (27.0-31.0); Mean Corpuscular Volume 90.3 fl (78.0-98.0); Mean Platelet Volume 7.1 fL (7.4-10.4); Platelet Count 154 10x3/uL (130-400); White Blood Cell (WBC) Count 13.5 10x3/uL (4.8-10.8)
[2023-01-09 04:47] LABS: Anion Gap 7 mmol/L (10-20); BUN (Urea Nitrogen) 17 mg/dL (9.8-20.1); Calc. Creatinine Clearance 67 mL/min (70-130); Calcium 8.9 mg/dL (7.8-10.44); Carbon Dioxide 28 mmol/L (23-31); Chloride 102 mmol/L (98-107); Estimated GFR 92; Glucose 131 mg/dL (83-110); Potassium 4.4 mmol/L (3.5-5.1); Sodium 133 mmol/L (136-145)
[2023-01-09] MEDS: Insulin Regular 300 UNITS/3 ML VIAL SC PRN (05:37)
[2023-01-09] MEDS: Budesonide 0.5 MG/2 ML NEB NEB SCH ×2 (07:17→19:14)
[2023-01-09] MEDS ORDERED: methylPREDNISolone Sod Succ 40 MG VIAL IVP SCH (07:45)
[2023-01-09] MEDS: Magnesium 2 GM/50 ML(in water) 2 GM in Premix Bag 1 BAG IVPB SCH (07:52)
[2023-01-09] MEDS: Aspirin 325 MG TAB PO SCH (09:28)
[2023-01-09] MEDS: Famotidine/PF 20 mg/2ml Vial SLOW IVP SCH ×2 (09:28→21:32)
[2023-01-09] MEDS: Furosemide 20 MG TAB PO SCH ×2 (09:28→14:22)
[2023-01-09] MEDS: methylPREDNISolone Sod Succ 40 MG VIAL IVP SCH ×2 (12:09→18:10)
[2023-01-09] MEDS: Atorvastatin Calcium 20 MG TAB PO SCH (21:32)
[2023-01-10] MEDS: methylPREDNISolone Sod Succ 40 MG VIAL IVP SCH ×2 (01:11→05:10)
[2023-01-10] MEDS: Ketorolac Tromethamine 30 MG/ML VIAL IVP SCH ×3 (01:11→17:40)
[2023-01-10] MEDS: Ipratropium/Albuterol 3 ML NEB NEB SCH ×6 (03:26→22:36)
[2023-01-10 05:31] LABS: #Lymphocytes 0.4 thou/uL (1.20-3.40); #Monocytes 0.6 thou/uL (0.11-0.59); #Neutrophils 12.7 thou/uL (1.40-6.50); %Basophils 0.1 % (0.0-1.0); %Eosinophils 0.1 % (0.0-10.0); %Lymphocytes 3.1 % (21.0-51.0); %Monocytes 4.2 % (0.0-10.0); %Neutrophils 92.5 % (42.0-75.0); Hemoglobin 8.8 g/dL (12.0-16.0); Mean Corpuscular HGB CONC 32.7 g/dL (32.0-36.0); Mean Corpuscular Hemoglobin 29.2 pg (27.0-31.0); Mean Corpuscular Volume 89.5 fl (78.0-98.0); Mean Platelet Volume 7.3 fL (7.4-10.4); Platelet Count 173 10x3/uL (130-400); RBC Distribution Width 14.1 % (11.5-14.5); Red Blood Cell (RBC) Count 3.02 mill/uL (4.20-5.40); White Blood Cell (WBC) Count 13.8 10x3/uL (4.8-10.8)
[2023-01-10 05:47] LABS: Anion Gap 13 mmol/L (10-20); BUN (Urea Nitrogen) 20 mg/dL (9.8-20.1); Calc. Creatinine Clearance 51 mL/min (70-130); Carbon Dioxide 27 mmol/L (23-31); Chloride 98 mmol/L (98-107); Estimated GFR 87; Glucose 139 mg/dL (83-110); Potassium 4.6 mmol/L (3.5-5.1); Sodium 133 mmol/L (136-145)
[2023-01-10] MEDS: Budesonide 0.5 MG/2 ML NEB NEB SCH ×2 (07:27→18:49)
[2023-01-10] MEDS ORDERED: Furosemide 20 MG/2 ML VIAL SLOW IVP SCH (09:30)
[2023-01-10] MEDS: Aspirin 325 MG TAB PO SCH (09:38)
[2023-01-10] MEDS: Famotidine/PF 20 mg/2ml Vial SLOW IVP SCH (09:38)
[2023-01-10] MEDS: Furosemide 20 MG TAB PO SCH ×2 (09:38→14:22)
[2023-01-10] MEDS: Insulin Regular 300 UNITS/3 ML VIAL SC PRN (09:39)
[2023-01-10] MEDS ORDERED: Famotidine/PF 20 mg/2ml Vial SLOW IVP SCH ×3 (13:23→21:00)
[2023-01-10] MEDS: Bisacodyl 5 MG TAB PO PRN (16:37)
[2023-01-10] MEDS: predniSONE 20 MG TAB PO SCH (16:37)
[2023-01-10] MEDS: Atorvastatin Calcium 20 MG TAB PO SCH (19:24)
[2023-01-11] MEDS: Ipratropium/Albuterol 3 ML NEB NEB SCH ×6 (03:44→21:41)
[2023-01-11 04:32] LABS: #Lymphocytes 0.6 thou/uL (1.20-3.40); #Monocytes 0.6 thou/uL (0.11-0.59); %Lymphocytes 5.4 % (21.0-51.0); %Monocytes 5.6 % (0.0-10.0); Hemoglobin 9.1 g/dL (12.0-16.0); Mean Corpuscular HGB CONC 32.4 g/dL (32.0-36.0); Mean Corpuscular Hemoglobin 29.3 pg (27.0-31.0); Mean Corpuscular Volume 90.6 fl (78.0-98.0); Platelet Count 225 10x3/uL (130-400); RBC Distribution Width 14.1 % (11.5-14.5); Red Blood Cell (RBC) Count 3.09 mill/uL (4.20-5.40); White Blood Cell (WBC) Count 11.2 10x3/uL (4.8-10.8)
[2023-01-11 05:05] LABS: Anion Gap 14 mmol/L (10-20); BUN (Urea Nitrogen) 31 mg/dL (9.8-20.1); Calc. Creatinine Clearance 46 mL/min (70-130); Calcium 9.4 mg/dL (7.8-10.44); Carbon Dioxide 29 mmol/L (23-31); Chloride 97 mmol/L (98-107); Estimated GFR 77; Glucose 132 mg/dL (83-110); Potassium 4.6 mmol/L (3.5-5.1); Sodium 135 mmol/L (136-145)
[2023-01-11] MEDS: Budesonide 0.5 MG/2 ML NEB NEB SCH ×2 (07:12→18:40)
[2023-01-11] MEDS: Diltiazem 125 MG in Sodium Chloride 0.9% 100 ML IVPB SCH ×2 (07:26→19:16)
[2023-01-11] MEDS: HYDROcodone/Acetaminophen 5/325 mg Tablet PO PRN (07:28)
[2023-01-11] MEDS ORDERED: ROFLUMILAST 500 MCG PO SCH (09:00)
[2023-01-11] MEDS: Furosemide 20 MG TAB PO SCH ×2 (09:01→13:54)
[2023-01-11] MEDS: Aspirin 325 MG TAB PO SCH (09:01)
[2023-01-11] MEDS: predniSONE 20 MG TAB PO SCH (09:01)
[2023-01-11] MEDS: predniSONE 5 MG TAB PO SCH (16:55)
[2023-01-11] MEDS: Atorvastatin Calcium 20 MG TAB PO SCH (21:05)
[2023-01-12] MEDS: Ipratropium/Albuterol 3 ML NEB NEB SCH ×6 (01:14→23:00)
[2023-01-12 04:25] LABS: #Lymphocytes 0.7 thou/uL (1.20-3.40); #Monocytes 0.9 thou/uL (0.11-0.59); #Neutrophils 8.7 thou/uL (1.40-6.50); %Basophils 0.1 % (0.0-1.0); %Eosinophils 0.1 % (0.0-10.0); %Lymphocytes 7.1 % (21.0-51.0); %Monocytes 8.3 % (0.0-10.0); %Neutrophils 84.4 % (42.0-75.0); Hemoglobin 9.4 g/dL (12.0-16.0); Mean Corpuscular HGB CONC 32.8 g/dL (32.0-36.0); Mean Corpuscular Hemoglobin 29.8 pg (27.0-31.0); Mean Corpuscular Volume 90.9 fl (78.0-98.0); Mean Platelet Volume 6.3 fL (7.4-10.4); Platelet Count 261 10x3/uL (130-400); Red Blood Cell (RBC) Count 3.16 mill/uL (4.20-5.40); White Blood Cell (WBC) Count 10.3 10x3/uL (4.8-10.8)
[2023-01-12 04:49] LABS: Anion Gap 13 mmol/L (10-20); BUN (Urea Nitrogen) 22 mg/dL (9.8-20.1); Calc. Creatinine Clearance 52 mL/min (70-130); Calcium 9.5 mg/dL (7.8-10.44); Carbon Dioxide 30 mmol/L (23-31); Chloride 97 mmol/L (98-107); Estimated GFR 87; Glucose 119 mg/dL (83-110); Potassium 4.1 mmol/L (3.5-5.1); Sodium 136 mmol/L (136-145)
[2023-01-12] MEDS: Budesonide 0.5 MG/2 ML NEB NEB SCH ×2 (07:07→19:04)
[2023-01-12] MEDS: predniSONE 5 MG TAB PO SCH (08:06)
[2023-01-12] MEDS: Furosemide 20 MG TAB PO SCH ×2 (09:45→14:02)
[2023-01-12] MEDS: Aspirin 325 MG TAB PO SCH (09:45)
[2023-01-12] MEDS ORDERED: Nystatin 500,000 UNITS/5 ML UDCUP SSW SCH (11:15)
[2023-01-12] MEDS: Nystatin 500,000 UNITS/5 ML UDCUP SSW SCH ×2 (16:18→21:04)
[2023-01-12] MEDS: Bisacodyl 5 MG TAB PO PRN (16:27)
[2023-01-12] MEDS: Diltiazem 125 MG in Sodium Chloride 0.9% 100 ML IVPB SCH (16:31)
[2023-01-12] MEDS ORDERED: predniSONE 5 MG TAB PO SCH (21:00)
[2023-01-12] MEDS: Atorvastatin Calcium 20 MG TAB PO SCH (21:03)
[2023-01-13] MEDS: Ipratropium/Albuterol 3 ML NEB NEB SCH ×6 (03:07→22:24)
[2023-01-13 05:15] LABS: #Eosinphils 0.1 thou/uL (0.0-0.7); #Lymphocytes 1.4 thou/uL (1.20-3.40); #Monocytes 0.8 thou/uL (0.11-0.59); #Neutrophils 5.5 thou/uL (1.40-6.50); %Basophils 0.1 % (0.0-1.0); %Eosinophils 0.8 % (0.0-10.0); %Lymphocytes 17.8 % (21.0-51.0); %Monocytes 10.4 % (0.0-10.0); %Neutrophils 70.8 % (42.0-75.0); Hemoglobin 9.8 g/dL (12.0-16.0); Mean Corpuscular HGB CONC 31.3 g/dL (32.0-36.0); Mean Corpuscular Hemoglobin 28.7 pg (27.0-31.0); Mean Corpuscular Volume 91.5 fl (78.0-98.0); Mean Platelet Volume 6.5 fL (7.4-10.4); Platelet Count 275 10x3/uL (130-400); RBC Distribution Width 13.9 % (11.5-14.5); Red Blood Cell (RBC) Count 3.43 mill/uL (4.20-5.40); White Blood Cell (WBC) Count 7.7 10x3/uL (4.8-10.8)
[2023-01-13 05:46] LABS: Anion Gap 12 mmol/L (10-20); BUN (Urea Nitrogen) 18 mg/dL (9.8-20.1); Calc. Creatinine Clearance 58 mL/min (70-130); Calcium 8.5 mg/dL (7.8-10.44); Carbon Dioxide 31 mmol/L (23-31); Chloride 97 mmol/L (98-107); Estimated GFR 90; Glucose 87 mg/dL (83-110); Potassium 3.6 mmol/L (3.5-5.1); Sodium 136 mmol/L (136-145)
[2023-01-13] MEDS: Budesonide 0.5 MG/2 ML NEB NEB SCH ×2 (07:27→19:22)
[2023-01-13] MEDS: predniSONE 5 MG TAB PO SCH (07:49)
[2023-01-13] MEDS: Nystatin 500,000 UNITS/5 ML UDCUP SSW SCH ×4 (09:03→21:18)
[2023-01-13] MEDS: Furosemide 20 MG TAB PO SCH ×2 (09:03→13:24)
[2023-01-13] MEDS: Aspirin 325 MG TAB PO SCH (09:03)
[2023-01-13] MEDS ORDERED: Furosemide 20 MG/2 ML VIAL SLOW IVP SCH (10:30)
[2023-01-13] MEDS ORDERED: Potassium Chloride 20 MEQ TAB PO SCH (12:00)
[2023-01-13] MEDS: Diltiazem 125 MG in Sodium Chloride 0.9% 100 ML IVPB SCH (17:11)
[2023-01-13] MEDS: HYDROcodone/Acetaminophen 5/325 mg Tablet PO PRN (19:48)
[2023-01-13] MEDS: Atorvastatin Calcium 20 MG TAB PO SCH (21:17)
[2023-01-14] MEDS: Ipratropium/Albuterol 3 ML NEB NEB SCH ×6 (02:51→22:16)
[2023-01-14 04:34] LABS: #Eosinphils 0.1 thou/uL (0.0-0.7); #Lymphocytes 1.4 thou/uL (1.20-3.40); #Monocytes 0.9 thou/uL (0.11-0.59); #Neutrophils 7.5 thou/uL (1.40-6.50); %Basophils 0.1 % (0.0-1.0); %Lymphocytes 14.2 % (21.0-51.0); %Neutrophils 75.7 % (42.0-75.0); Hemoglobin 10.7 g/dL (12.0-16.0); Mean Corpuscular HGB CONC 33.7 g/dL (32.0-36.0); Mean Corpuscular Hemoglobin 30.4 pg (27.0-31.0); Mean Corpuscular Volume 90.1 fl (78.0-98.0); Platelet Count 353 10x3/uL (130-400); RBC Distribution Width 13.7 % (11.5-14.5); Red Blood Cell (RBC) Count 3.52 mill/uL (4.20-5.40)
[2023-01-14 05:03] LABS: Anion Gap 13 mmol/L (10-20); BUN (Urea Nitrogen) 16 mg/dL (9.8-20.1); Calc. Creatinine Clearance 59 mL/min (70-130); Calcium 8.7 mg/dL (7.8-10.44); Carbon Dioxide 33 mmol/L (23-31); Chloride 94 mmol/L (98-107); Estimated GFR 93; Glucose 98 mg/dL (83-110); Magnesium 1.8 mg/dL (1.6-2.6); Potassium 3.7 mmol/L (3.5-5.1); Sodium 136 mmol/L (136-145)
[2023-01-14] MEDS: Mag-Al 1200 mg/1200 mg/30 ML UDCUP PO PRN (05:24)
[2023-01-14] MEDS: Budesonide 0.5 MG/2 ML NEB NEB SCH ×2 (07:53→18:28)
[2023-01-14] MEDS: Nystatin 500,000 UNITS/5 ML UDCUP SSW SCH ×2 (08:57→13:00)
[2023-01-14] MEDS: predniSONE 5 MG TAB PO SCH (08:57)
[2023-01-14] MEDS: Furosemide 20 MG TAB PO SCH ×2 (08:57→13:00)
[2023-01-14] MEDS: Aspirin 325 MG TAB PO SCH (08:57)
[2023-01-14] MEDS ORDERED: Lidocaine Viscous Sol 2% 15 ml UD Cup SSW PRN (10:14)
[2023-01-14] MEDS: Diltiazem 125 MG in Sodium Chloride 0.9% 100 ML IVPB SCH (12:50)
[2023-01-14] MEDS: Dronedarone HCl 400 MG TAB PO SCH (17:46)
[2023-01-14] MEDS: Atorvastatin Calcium 20 MG TAB PO SCH (21:27)
[2023-01-15] MEDS: Ipratropium/Albuterol 3 ML NEB NEB SCH ×3 (02:10→10:55)
[2023-01-15 04:52] LABS: #Eosinphils 0.1 thou/uL (0.0-0.7); #Lymphocytes 1.1 thou/uL (1.20-3.40); #Monocytes 0.7 thou/uL (0.11-0.59); %Basophils 0.3 % (0.0-1.0); %Eosinophils 0.8 % (0.0-10.0); %Lymphocytes 9.9 % (21.0-51.0); %Monocytes 6.5 % (0.0-10.0); %Neutrophils 82.5 % (42.0-75.0); Hemoglobin 10.6 g/dL (12.0-16.0); Mean Corpuscular HGB CONC 32.4 g/dL (32.0-36.0); Mean Corpuscular Hemoglobin 29.3 pg (27.0-31.0); Mean Corpuscular Volume 90.3 fl (78.0-98.0); Mean Platelet Volume 5.9 fL (7.4-10.4); Platelet Count 438 10x3/uL (130-400); RBC Distribution Width 13.7 % (11.5-14.5); White Blood Cell (WBC) Count 10.9 10x3/uL (4.8-10.8)
[2023-01-15 05:13] LABS: Anion Gap 13 mmol/L (10-20); BUN (Urea Nitrogen) 16 mg/dL (9.8-20.1); Calc. Creatinine Clearance 58 mL/min (70-130); Calcium 8.7 mg/dL (7.8-10.44); Carbon Dioxide 32 mmol/L (23-31); Chloride 91 mmol/L (98-107); Estimated GFR 92; Glucose 112 mg/dL (83-110); Sodium 132 mmol/L (136-145)
[2023-01-15] MEDS: Budesonide 0.5 MG/2 ML NEB NEB SCH (07:53)
[2023-01-15] MEDS: predniSONE 5 MG TAB PO SCH (08:12)
[2023-01-15] MEDS: Aspirin 325 MG TAB PO SCH (08:12)
[2023-01-15] MEDS: Furosemide 20 MG TAB PO SCH (08:12)
[2023-01-15] MEDS: Dronedarone HCl 400 MG TAB PO SCH (08:12)
[2023-01-15] MEDS ORDERED: Bisacodyl 5 MG TAB PO SCH (08:15)
[2023-01-15] MEDS ORDERED: Polyethylene Glycol 3350 17 GM Packet PO SCH (09:00)
[2023-01-15 11:34] VITALS: BP 115/62; TEMP 98.3
[2023-01-15] MEDS ORDERED: Dronedarone HCl 400 MG TAB PO SCH (17:00)
== END 2023-01-15 14:37 | disposition home or self-care (01) | DRG 235 ==
LOC: SURG A 01-07 05:38 → CCU 01-07 10:20 → 2NO 01-09 23:22
PROVIDERS: ADMIT Thoracic Surgery (Cardiothoracic Vascular Surgery); ATTEND Thoracic Surgery (Cardiothoracic Vascular Surgery)
PROC: 02100Z9 Bypass Coronary Artery, One Artery from Left Internal Mammary, Open Approach (ICD-10-PCS; principal; 2023-01-07)
PROC: 021109W Bypass Coronary Artery, Two Arteries from Aorta with Autologous Venous Tissue, Open Approach (ICD-10-PCS; 2023-01-07)
PROC: 06BP4ZZ Excision of Right Saphenous Vein, Percutaneous Endoscopic Approach (ICD-10-PCS; 2023-01-07)
PROC: 5A1221Z Performance of Cardiac Output, Continuous (ICD-10-PCS; 2023-01-07)
PROC: 02L70ZK Occlusion of Left Atrial Appendage, Open Approach (ICD-10-PCS; 2023-01-07)
PROC: 3E033XZ Introduction of Vasopressor into Peripheral Vein, Percutaneous Approach (ICD-10-PCS; 2023-01-07)
DX: I21.4 Non-ST elevation (NSTEMI) myocardial infarction (principal); I50.33 Acute on chronic diastolic (congestive) heart failure; J96.01 Acute respiratory failure with hypoxia; E87.20 Acidosis, unspecified; J44.1 Chronic obstructive pulmonary disease with (acute) exacerbation; I47.1 Supraventricular tachycardia; I48.4 Atypical atrial flutter; I25.10 Atherosclerotic heart disease of native coronary artery without angina pectoris; M79.7 Fibromyalgia; R73.9 Hyperglycemia, unspecified; Z79.82 Long term (current) use of aspirin; Z79.899 Other long term (current) drug therapy; Z90.710 Acquired absence of both cervix and uterus; Z87.891 Personal history of nicotine dependence
CPT/HCPCS: 36415; 36416; 36430; 71045; 80048; 82805; 83735; 83880; 85025; 85027; 85610; 85730; 86850; 86900; 86901; 87811; 93005; 93010; 93798; 94002; 97139; C1713; C1751; C1776; J0360; J1100; J1642; J1644; J1650; J1815; J1885; J1940; J2001; J2150; J2250; J2405; J2440; J2720; J2920; J3010; J3370; J3475; J3480; J3490; J7120; J7512; J7620; J7626; P9045; P9047; S0017; S0028; U0002

== ENCOUNTER 2025-09-01 09:45 | Outpatient (CLI) | payer MEDICARE | END 2025-09-01 09:46 | disposition home or self-care (01) | LOC: BICCT 09:45 | PROVIDERS: ATTEND Internal Medicine | DX: Z12.2 Encounter for screening for malignant neoplasm of respiratory organs (principal); J44.9 Chronic obstructive pulmonary disease, unspecified; Z87.891 Personal history of nicotine dependence | CPT/HCPCS: 71271 ==